=== PATIENT | female | born 1955 | race African-American/Black ===

== ENCOUNTER 2017-03-29 05:00 | Inpatient (IN) ==
--- NOTE | 2017-03-23 11:01 | EKG Report ---
Test Performed on : 03/23/2017 10:28:52 AM Test Reason : PAT Blood Pressure : / mmHG Vent. Rate : 086 BPM Atrial Rate : 086 BPM P-R Int : 154 ms QRS Dur : 098 ms QT Int : 416 ms P-R-T Axes : 061 -20 012 degrees QTc Int : 497 ms Sinus rhythm. with premature supraventricular complexes. Otherwise normal ECG When compared with ECG of 19-APR-2016 11:22, premature supraventricular complexes. are now present QT has lengthened Confirmed by cJ Ramos MD ([id number]) on 03/23/2017 3:23:35 PM
[2017-03-23 11:02] LABS: MANUAL DIFF NEEDED? NO; URINE MICRO REVIEW NEEDED? NO; URINE SOURCE CLEAN CATCH
[2017-03-23 11:05] LABS: BASO% 0.3 % (0.0-0.8); EOS% 1.3 % (0.0-10.0); HEMATOCRIT 35.5 % (37.0-47.0); HEMOGLOBIN 11.4 g/dL (12.0-16.0); LYMPH# 3.12 X1000 (1.2-3.4); LYMPH% 41.9 % (20.5-51.1); MCH 27.3 PG (27-31); MCHC 32.1 g/dL (33-37); MCV 84.9 FL (81-99); MONO# 0.62 X1000 (0.11-0.59); MONO% 8.3 % (1.7-9.3); MPV 9.7 FL (7.4-10.4); NEUT% 48.2 % (42.2-75.2); PLT 295 X1000 (130-400); RBC 4.18 XMIL (4.2-5.4)
[2017-03-23 11:07] LABS: BILIRUBIN URINE NEGATIVE (NEGATIVE); BLOOD URINE NEGATIVE (NEGATIVE); COLOR YELLOW; GLUCOSE URINE NEGATIVE (NEGATIVE); LEUKOCYTES URINE NEGATIVE (NEGATIVE); NITRITE URINE NEGATIVE (NEGATIVE); PROTEIN URINE NEGATIVE (NEGATIVE); SP GRAVITY URINE 1.007; TURBIDITY URINE CLEAR (CLEAR); UR EPITHELIAL CELLS <10 /HPF (<10); URINE BACTERIA NEGATIVE /HPF; URINE RBC <10 /HPF (<10); URINE WBC <10 /HPF (<10); UROBILINOGEN URINE NORMAL (NORMAL)
[2017-03-23 11:14] LABS: INR 0.99; PROTIME 10.4 Seconds (9.2-11.7)
[2017-03-23 11:33] LABS: AGAP 7; BUN 14 mg/dL (8-22); CALCIUM 8.7 mg/dL (8.8-10.2); CHLORIDE 100 mmol/L (98-107); COSMO 283; POTASSIUM 3.5 mmol/L (3.5-5.1); SODIUM 142 mmol/L (136-145); TCO2 35 mmol/L (25-35)
[2017-03-29] MEDS ORDERED: COLACE ONE (08:34)
[2017-03-29] MEDS ORDERED: LYRICA ONE (08:34)
[2017-03-29] MEDS ORDERED: PEPCID ONE (08:34)
[2017-03-29] MEDS ORDERED: REGLAN ONE (08:34)
[2017-03-29] MEDS ORDERED: LR 1,000 ML ONE (08:35)
[2017-03-29] MEDS ORDERED: CELEBREX ONE (08:35)
[2017-03-29] MEDS ORDERED: KEFZOL 2 GM/D5W 2 GM/50 ML IVPB ONE (08:35)
[2017-03-29] MEDS ORDERED: VALIUM ONE (09:07)
[2017-03-29] MEDS ORDERED: DURAMORPH ONE (09:31)
[2017-03-29] MEDS ORDERED: MARCAINE 0.25% PF ONE (09:32)
[2017-03-29] MEDS ORDERED: TORADOL ONE (09:32)
[2017-03-29] MEDS ORDERED: VANCOMYCIN ONE (09:32)
[2017-03-29] MEDS ORDERED: CYKLOKAPRON 1,000 MG/NS 1,000 MG/100 ML IVPB ONE ×2 (09:32→09:33)
[2017-03-29] MEDS ORDERED: NEOSPORIN G.U. IRRIGANT ONE (09:32)
[2017-03-29] MEDS ORDERED: EXPAREL 1.3% ONE (09:32)
[2017-03-29] MEDS ORDERED: SODIUM CHLORIDE 0.9% ONE (09:32)
[2017-03-29] MEDS ORDERED: VERSED ONE (09:44)
[2017-03-29] MEDS ORDERED: FENTANYL ONE (09:52)
[2017-03-29] MEDS ORDERED: DIPRIVAN 1% ONE (09:52)
[2017-03-29] MEDS ORDERED: OFIRMEV 1000 MG/ISOTONIC SOLN 1,000 MG/100 ML BOTTLE ONE (10:05)
[2017-03-29] MEDS ORDERED: ZOFRAN ONE (10:05)
[2017-03-29] MEDS ORDERED: NEO-SYNEPHRINE ONE (10:05)
[2017-03-29] MEDS ORDERED: SODIUM CHLORIDE 0.9% 10 ML ONE (10:05)
[2017-03-29] MEDS ORDERED: DECADRON ONE (10:05)
[2017-03-29 10:53] LABS: URINE MICRO REVIEW NEEDED? NO; URINE SOURCE CATH
[2017-03-29 11:15] LABS: BILIRUBIN URINE NEGATIVE (NEGATIVE); BLOOD URINE NEGATIVE (NEGATIVE); COLOR YELLOW; GLUCOSE URINE NEGATIVE (NEGATIVE); LEUKOCYTES URINE NEGATIVE (NEGATIVE); NITRITE URINE NEGATIVE (NEGATIVE); PH URINE 6.5; PROTEIN URINE TRACE mg/dL (NEGATIVE); TURBIDITY URINE CLEAR (CLEAR); UROBILINOGEN URINE NORMAL (NORMAL)
[2017-03-29 11:17] LABS: UR EPITHELIAL CELLS <10 /HPF (<10); URINE BACTERIA NEGATIVE /HPF; URINE RBC <10 /HPF (<10); URINE WBC <10 /HPF (<10)
[2017-03-29] MEDS ORDERED: EPHEDRINE ONE (11:25)
[2017-03-29] MEDS ORDERED: NS 1,000 ML ONE (12:16)
--- NOTE | 2017-03-29 12:21 | OPERATIVE NOTE ---
PROCEDURE DATE: 03/29/2017 PREOPERATIVE DIAGNOSIS: Degenerative joint disease, right knee. POSTOPERATIVE DIAGNOSIS: Degenerative joint disease, right knee. PROCEDURE: Right total knee replacement. SURGEON: Yasir Bruce MD. POSTING CLERK: ABBY Vann. ANESTHESIA: Spinal. COMPLICATION: Partial patellar tendon avulsion. PROCEDURE IN DETAIL: This 61-year-old female presents for right knee replacement. Risks, benefits, and no guarantees were discussed, and she is willing to proceed. She was taken the operating room and satisfactory anesthesia obtained. The right leg was prepped and draped in usual sterile fashion. A time-out was taken to confirm operative site, procedure, and patient. The leg was wrapped with an Esmarch, and tourniquet inflated to 350 mmHg. A midline incision was made over the front of the knee followed by a quad tendon sparing arthrotomy. The patella was everted and resurfaced with free-hand technique. A valgus knee was noted and all gentle lateral release of the IT band and lateral thickening of the retinaculum was undertaken. With the knee flexed, an intramedullary hole was made in the distal femur, and the distal femoral cutting block secured in 5 degrees of valgus. Additional 1 mm was taken off the distal femur due to a mild flexion contracture, and a distal femur sized to a size 5 femoral component. Due to valgus deformity and the need to correct this, posterior stabilized design was utilized. The 4 in 1 block was secured in the anterior, posterior, and chamfer cuts sequentially made, followed by the box guide for the posterior stabilized design. Any remaining osteophytes were debrided about the femur. A partial avulsion of the patellar tendon was noted during retraction the patella to expose the distal femur. No complete avulsion was noted. This was repaired at the end of the case using Juggernaut anchors with #2 suture. After preparation of the femur, the knee was flexed. A PCL retractor placed behind the tibia, and the tibial cutting block secured with an extramedullary alignment. Tibial resection was made and the flexion and extension gaps equal. The tibia was sized to a size 5 tibial base. A trial reduction was performed with a size 5 tibial base, a 5 mm posterior stabilized rotating poly, a 5 regular posterior stabilized right femoral component, and a 35 medialized patella. The trial components had good range of motion and stability. These were removed, and the bony surfaces thoroughly irrigated with pulsatile lavage. Cement with a gram of vancomycin was then utilized to cement a size 5 rotating platform tibial base plate, a size 5 right posterior stabilized femoral component, and a 35 medialized dome patella. Excess cement was removed with a Stapleton elevator as necessary. While the cement hardened, the joint capsule was injected with Exparel for pain management, and Hemovac drain placed. The patellar tendon was repaired with without Juggernaut anchors in the footprint and repaired in a [id number] fashion with secure fixation of patellar tendon throughout a full range of motion and flexion. The knee was copiously irrigated with irrigant and closed in layers with #1 Vicryl in the arthrotomy, 2-0 Vicryl in the subcutaneous, and skin everardo on the skin edges. Sterile dressings completed the closure, and the patient was recovered from anesthesia and transferred to recovery room in stable condition. No intraoperative complications were noted. Instrument count and sponge count was correct at the time of closure. cc: Anup Bruce MD
[2017-03-29] MEDS ORDERED: NS 1,000 ML IV SCH (13:30)
[2017-03-29] MEDS ORDERED: MILK OF MAGNESIA PO PRN (13:30)
[2017-03-29] MEDS ORDERED: ZOFRAN IV PRN (13:30)
[2017-03-29] MEDS ORDERED: MORPHINE IV PRN (13:30)
[2017-03-29] MEDS ORDERED: TYLENOL PO SCH (13:30)
--- NOTE | 2017-03-29 14:39 | Diag Imaging Result Doc PS360 ---
EXAM: KNEE 1-2 VIEWS-RIGHT HISTORY: s/p right total knee arthroplasty TECHNIQUE: Portable two views COMPARISON: None. FINDINGS: There has been recent orthopedic replacement of the knee. There are anterior skin everardo. A drain is present superiorly. No fracture. No dislocation. IMPRESSION: Recently replaced right knee with good alignment of the femoral and tibial components. Electronically signed by Howard Parks 03/29/2017 2:36 PM
[2017-03-29] MEDS: BUMEX PO SCH (14:54)
[2017-03-29] MEDS: ULTRAM PO SCH ×2 (14:54→21:46)
[2017-03-29] MEDS: SYNTHROID PO SCH (14:55)
[2017-03-29] MEDS: TYLENOL PO SCH ×2 (15:49→22:57)
[2017-03-29] MEDS: OXY IR PO PRN ×3 (15:50→22:30)
[2017-03-29] MEDS: FLEXERIL PO SCH (16:35)
[2017-03-29] MEDS: KLOR-CON POWDER PACKET PO SCH (16:37)
--- NOTE | 2017-03-29 17:48 | PROGRESS NOTE ---
DATE: 03/29/2017 Ms. Vick is seen status post total knee replacement. At the present time she is afebrile. Her bandage is clean and dry. She has already been up mobilizing. She is motor and sensory intact. She is stable at the present time. cc: Anup Bruce MD
[2017-03-29] MEDS: KEFZOL 1 GM/D5W 1 GM/50 ML IVPB IV SCH (18:36)
[2017-03-29] MEDS ORDERED: NEURONTIN PO SCH (21:00)
[2017-03-29] MEDS ORDERED: XANAX XR PO SCH (21:00)
[2017-03-29] MEDS ORDERED: DESYREL PO SCH (21:00)
[2017-03-29] MEDS: COLACE PO SCH (21:46)
[2017-03-29] MEDS: CELEBREX PO SCH (21:47)
[2017-03-29] MEDS: PERIDEX MT SCH (21:48)
[2017-03-30] MEDS: KEFZOL 1 GM/D5W 1 GM/50 ML IVPB IV SCH (03:58)
[2017-03-30] MEDS: ULTRAM PO SCH ×2 (03:59→07:57)
[2017-03-30] MEDS: OXY IR PO PRN ×2 (05:28→09:40)
[2017-03-30] MEDS: TYLENOL PO SCH ×2 (05:28→07:55)
[2017-03-30] MEDS ORDERED: XARELTO PO SCH (06:00)
[2017-03-30 06:08] LABS: AGAP 11; BUN 11 mg/dL (8-22); CALCIUM 8.7 mg/dL (8.8-10.2); CHLORIDE 102 mmol/L (98-107); COSMO 283; HEMATOCRIT 30.9 % (37.0-47.0); HEMOGLOBIN 9.7 g/dL (12.0-16.0); POTASSIUM 3.9 mmol/L (3.5-5.1); SODIUM 142 mmol/L (136-145); TCO2 29 mmol/L (25-35)
[2017-03-30 07:30] VITALS: BP 128/89
[2017-03-30] MEDS: FLEXERIL PO SCH (07:55)
[2017-03-30] MEDS: KLOR-CON POWDER PACKET PO SCH (07:55)
[2017-03-30] MEDS: BUMEX PO SCH (07:56)
[2017-03-30] MEDS: SYNTHROID PO SCH (07:57)
[2017-03-30] MEDS: COLACE PO SCH (07:58)
[2017-03-30] MEDS: CELEBREX PO SCH (07:58)
[2017-03-30] MEDS: PERIDEX MT SCH (07:59)
[2017-03-30] MEDS ORDERED: PEPCID PO SCH (09:00)
[2017-03-30] MEDS ORDERED: ZAROXOLYN PO SCH (09:00)
--- NOTE | 2017-03-31 07:20 | DISCHARGE SUMMARY ---
ADMISSION DATE: 03/29/2017 DISCHARGE DATE: 03/30/2017 ADMITTING DIAGNOSIS: Degenerative joint disease right knee. ADDITIONAL DIAGNOSES: 1. History of sleep apnea. 2. Ulcers. 3. Rheumatism. 4. Hypertension. DISCHARGE DIAGNOSES: 1. History of sleep apnea. 2. Ulcers. 3. Rheumatism. 4. Hypertension. ADMITTING HISTORY AND HOSPITAL COURSE: This is a 61-year-old female who was admitted to the hospital for knee replacement. She underwent knee replacement surgery without complication. On postop day 1 she is discharged home for outpatient followup. At the present time, she is afebrile with stable vital signs. Her incision is clean and dry. There is no evidence of infection or deep venous thrombosis. DISCHARGE MEDICATIONS: Includes Percocet 10 as needed for pain, Xarelto 10 mg a day for deep venous thrombosis prophylaxis. Continuation of her home medicines consisting of alprazolam 2 mg daily, bemitradine tablet 1 mg daily, levothyroxine 150 mcg daily, 2.5 daily, potassium supplementation, trazodone 50 mg as needed. She can be mobilized with home therapy full-weightbearing. There are no restrictions. We will see her back in 2 weeks time for staple removal. cc: Anup Bruce MD
== END 2017-03-30 10:42 | disposition home health service (06) ==
LOC: SURHOLD 05:00 → 4N 10:47
PROVIDERS: ADMIT Orthopaedic Surgery Adult Reconstructive Orthopaedic Surgery; ATTEND Orthopaedic Surgery Adult Reconstructive Orthopaedic Surgery

== ENCOUNTER 2019-03-09 08:47 | Inpatient (IN) ==
[2019-03-09] MEDS ORDERED: CARDIZEM ONE (09:11)
[2019-03-09] MEDS ORDERED: NS 500 ML IV ONE (09:15)
[2019-03-09] MEDS ORDERED: CARDIZEM IV ONE (09:15)
[2019-03-09 09:36] LABS: BASO# 0.03 X1000 (0.0-0.2); BASO% 0.3 % (0.0-0.8); EOS# 0.13 X1000 (0.0-0.7); EOS% 1.3 % (0.0-10.0); HEMATOCRIT 38.1 % (37.0-47.0); HEMOGLOBIN 11.9 g/dL (12.0-16.0); IMM GRAN# 0.02 X1000 (0.0-0.04); IMM GRAN% 0.2 % (0.0-0.5); LYMPH% 32.6 % (20.5-51.1); MCH 26.4 PG (27-31); MCHC 31.2 g/dL (33-37); MCV 84.7 FL (81-99); MONO# 0.84 X1000 (0.11-0.59); MONO% 8.3 % (1.7-9.3); MPV 9.7 FL (7.4-10.4); NEUT# 5.81 X1000 (1.4-6.5); NEUT% 57.3 % (42.2-75.2); PLT 345 X1000 (130-400); RDW 15.5 % (11.5-14.5); WBC 10.13 X1000 (4.8-10.8)
[2019-03-09 09:49] LABS: AGAP 12; ALBUMIN 4.1 g/dL (3.5-5.0); ALKALINE PHOSPHATASE 122 U/L (32-104); BUN 10 mg/dL (8-22); CALCIUM 9.1 mg/dL (8.8-10.2); CHLORIDE 95 mmol/L (98-107); COSMO 274; CREATININE 0.7 mg/dL (0.5-0.9); ESTIMATED GFR > 60; GLUCOSE 91 mg/dL (70-104); GOT 16 U/L (10-30); GPT 10 U/L (10-36); POTASSIUM 3.4 mmol/L (3.5-5.1); SODIUM 138 mmol/L (136-145); TCO2 31 mmol/L (25-35); TOTAL PROTEIN 7.3 g/dL (6.3-8.3)
[2019-03-09 09:52] LABS: CK PROFILE 178 U/L (24-173)
--- NOTE | 2019-03-09 09:58 | Diag Imaging Result Doc PS360 ---
CHEST-2 VIEWS - 03/09/2019 INDICATION: sob COMPARISON: None FINDINGS: There is a surgical resection suture line in the right middle lobe. There is mild cardiomegaly. Pulmonary vascularity is normal. There is some patchy linear atelectasis in the lingula. No substantial infiltrates or edema. No pneumothorax or pleural effusion. IMPRESSION: Mild cardiomegaly. Electronically signed by Juan Brooks 03/09/2019 9:55 AM
[2019-03-09 10:03] LABS: INR 0.95; PROTIME 13.2 Seconds (11.0-16.0)
[2019-03-09 10:04] LABS: PTT 29.3 Seconds (22.3-41.8)
[2019-03-09 10:28] LABS: CK INDEX 1.8 (0.0-2.5); CK-MB 3.23 ng/mL (0.0-5.0)
--- NOTE | 2019-03-09 10:28 | EKG Report ---
Test Performed on : 03/09/2019 09:03:16 AM Test Reason : sob Blood Pressure : / mmHG Vent. Rate : 121 BPM Atrial Rate : 093 BPM P-R Int : 000 ms QRS Dur : 120 ms QT Int : 324 ms P-R-T Axes : 000 -38 035 degrees QTc Int : 460 ms Atrial fibrillation. with rapid ventricular response. Left axis deviation Nonspecific intraventricular conduction delay Nonspecific T wave abnormality Abnormal ECG When compared with ECG of 23-MAR-2017 10:28, Atrial fibrillation. has replaced Sinus rhythm. ST elevation now present in Inferior leads T wave inversion more evident in Inferior leads Nonspecific T wave abnormality now evident in Lateral leads Unconfirmed Result
[2019-03-09] MEDS ORDERED: POTASSIUM CHLORIDE 20% LIQUID PO ONE (10:30)
--- NOTE | 2019-03-09 10:31 | PROVIDER DOCUMENTATION ---
This chart was entered by Liyah Hughes Scribe, acting as scribe for Jean Claude Peters MD. HPI-Respiratory General - General Chief Complaint: Shortness of Breath Stated Complaint: [id number] SWELLING Time Seen by Provider: 03/09/19 09:04 Source: patient Allergies/Adverse Reactions: Patient Allergies Allergy/AdvReac Type Severity Reaction Status Date / Time Iodinated Contrast Media Allergy Severe HIVES Verified 03/09/19 08:56 Home Medications: Home Medication List Medication Instructions Recorded Confirmed Last Taken Type Levothyroxine [Synthroid] 112 microgm PO DAILY 04/19/16 03/09/19 03/29/17 06:00 History 125 Cyclobenzaprine [Flexeril] 10 mg PO DAILY 03/23/17 03/09/19 03/28/17 23:00 History 10 Gabapentin 300 mg PO QHS 03/23/17 03/09/19 03/28/17 23:00 History 300 Amitriptyline HCl 1 tab PO HS 03/09/19 03/09/19 Unknown History Cholecalciferol (Vitamin D3) 1 tab PO DAILY 03/09/19 03/09/19 Unknown History [Vitamin D3] Diltiazem HCl [Cardizem Cd] 1 tab PO DAILY 03/09/19 03/09/19 Unknown History Hydrochlorothiazide 1 tab PO DAILY 03/09/19 03/09/19 Unknown History - History of Present Illness-Resp Nature of Presenting Problem: 63 yobf presents to the ed with c/o sob with exertion, palpitations, chest tighness and n/v at night. pt sts symptoms have been present intermittently "for months" pt on exam is happ and laughing with staff and is nontoxic in appearance Quality of Pain: reports: tightness (chest) Severity in ED: reports: mild Onset/Duration: reports: other ("for months") Timing: reports: still present, intermittent Context: reports: recent URI Cough Quality/Degree: reports: mild, productive cough (white) Current Respiratory Medication Therapy: Initiated see nurses note Modifying Factors: worse with: exertion, coughing Associated Symptoms: reports: chest pain/soreness (tightmness), cough, heart racing, shortness of breath, other (n/v). denies: fever/chills, wheezing Similar Symptoms Previously?: No Recently seen or treated by another doctor?: No Review of Systems - Adult - REVIEW OF SYSTEMS - ADULT Constitutional: denies: chills, fever Eyes: reports: no symptoms reported Ears, Nose, Mouth & Throat: reports: no symptoms reported Cardiovascular: reports: see HPI, chest pain, palpitations. denies: syncope Respiratory: reports: see HPI, cough, dyspnea on exertion, shortness of breath. denies: wheezing Gastrointestinal: reports: see HPI, nausea, vomiting. denies: diarrhea Genitourinary: reports: no symptoms reported Musculoskeletal: denies: back pain, neck pain Integumentary: reports: no symptoms reported Neurological: denies: dizziness/vertigo, headache/migraines Psychiatric: reports: no symptoms reported Endocrine: reports: no symptoms reported Hematologic/Lymphatic: reports: no symptoms reported Allergic/Immunologic: reports: no symptoms reported All Other Systems: Reviewed and Negative Past History - Adult - PAST MEDICAL HISTORY-ADULT Review of Records: reports: Old Records Reviewed, Nursing Assessment Review, Medications Reviewed, Social history reviewed & non-contributory. Major Childhood Illnesses: reports: denies history Cardiovascular: reports: HTN, hyperlipidemia Respiratory: reports: sleep apnea Gastrointestinal: reports: GERD Obstetrical/Gynecological: reports: denies history Genitourinary: reports: denies history Musculoskeletal: reports: arthritis Neurological: reports: denies history Psychiatric: reports: anxiety Endocrine/Immune: reports: denies history Other Conditions: reports: denies history - PRIOR SURGERIES/PROCEDURES Surgical/Procedure History: reports: hysterectomy, orthopedic (extremity), back/neck - IMMUNIZATION STATUS Childhood Immunizations: See Nurse Assessment Flu Vaccine: See Nurse Assessment - FAMILY HISTORY Family History: reviewed, not pertinent - SOCIAL HISTORY Smoking: cigarettes, less than 1 pack/day Provider spent 3-5 mins advising pt. on dangers of tobacco.: Discussed manners to quit use, and f/u contacts for add'l counseling. Substance Use: denies Alcohol Use Frequency: never Living Situation: family Physical Exam-General - PHYSICAL EXAM-ADULT Initial Vital Signs Reviewed: Yes - CONSTITUTIONAL General Appearance: appears well, alert, no apparent distress, obese - EYES Eyes: PERRL/EOMI, pink conjunctivae - HEAD, EARS, NOSE, MOUTH & THROAT HENMT: moist mucous membranes, normal ENT inspection - NECK Neck: non-tender, full range of motion, supple - RESPIRATORY Respiratory: chest non-tender, lungs clear, normal breath sounds, no respiratory distress, no accessory muscle use. negative: wheezing - CARDIOVASCULAR Cardiovascular: normal peripheral pulses, irregularly irregular (afib) - CHEST (BREASTS) Chest/Breast: no tenderness, other (c/o tightness) - GASTROINTESTINAL (ABDOMEN) Abdominal Exam: normal bowel sounds, non tender, soft - GENITOURINARY Female Genitalia/Pelvic Exam: deferred Rectal Exam: deferred Hemoccult Exam: deferred - LYMPHATIC Lymphatic: no adenopathy - MUSCULOSKELETAL Back Exam: normal inspection, no CVA tenderness, no vertebral tenderness Extremity: normal range of motion, non-tender, normal capillary refill, pelvis stable - SKIN Integumentary: normal color, normal turgor, warm/dry - NEUROLOGIC Neurologic: grossly normal, no motor/sensory deficits - PSYCHIATRIC Psych/Mental Status: normal mood/affect, normal thought content, normal thought process, oriented x 3 Progress - PLAN OF CARE/RESULTS Progress/Plan/Lab Results: Vital Signs - 8 hr 03/09/19 08:51 03/09/19 09:56 Temperature 98.1 F Pulse Rate 143 H 110 H Respiratory Rate 20 20 Blood Pressure 125/66 114/78 O2 Sat by Pulse Oximetry 100 97 Laboratory Results - last 24 hr 03/09/19 03/09/19 03/09/19 09:15 09:15 09:15 WBC 10.13 RBC 4.50 Hgb 11.9 L Hct 38.1 MCV 84.7 MCH 26.4 L MCHC 31.2 L RDW Std Deviation 15.5 H Plt Count 345 MPV 9.7 Immature Gran % (Auto) 0.2 Neut % (Auto) 57.3 Lymph % (Auto) 32.6 [place] % (Auto) 8.3 Eos % (Auto) 1.3 Baso % (Auto) 0.3 Immature Gran # (Auto) 0.02 Neut # (Auto) 5.81 Lymph # (Auto) 3.30 [place] # (Auto) 0.84 H Eos # (Auto) 0.13 Baso # (Auto) 0.03 PT INR PTT (Actin FS) Sodium 138 Potassium 3.4 L Chloride 95 L Carbon Dioxide 31 Anion Gap 12 BUN 10 Creatinine 0.7 Estimated GFR/1.73 m2 > 60 BUN/Creatinine Ratio 14 Glucose 91 Calculated Osmolality 274 Calcium 9.1 Total Bilirubin 0.30 AST 16 ALT 10 Alkaline Phosphatase 122 H Creatine Kinase 178 H Creatine Kinase Index 1.8 CK-MB (CK-2) 3.23 Troponin T Cbm-G-Vpempjdbrie Pept 868 H Total Protein 7.3 Albumin 4.1 Globulin 3.0 Albumin/Globulin Ratio 1.0 Free T4 03/09/19 03/09/19 03/09/19 09:15 09:15 09:15 WBC RBC Hgb Hct MCV MCH MCHC RDW Std Deviation Plt Count MPV Immature Gran % (Auto) Neut % (Auto) Lymph % (Auto) [place] % (Auto) Eos % (Auto) Baso % (Auto) Immature Gran # (Auto) Neut # (Auto) Lymph # (Auto) [place] # (Auto) Eos # (Auto) Baso # (Auto) PT 13.2 INR 0.95 PTT (Actin FS) 29.3 Sodium Potassium Chloride Carbon Dioxide Anion Gap BUN Creatinine Estimated GFR/1.73 m2 BUN/Creatinine Ratio Glucose Calculated Osmolality Calcium Total Bilirubin AST ALT Alkaline Phosphatase Creatine Kinase Creatine Kinase Index CK-MB (CK-2) Troponin T < 0.010 Tty-F-Bgdwljeeruj Pept Total Protein Albumin Globulin Albumin/Globulin Ratio Free T4 1.47 Orders Category Date Time Status Cardiac Monitoring DIRECTED Care 03/09/19 08:57 Active Saline Loc NOW Care 03/09/19 08:57 Active CHEST-2 VIEWS [RAD] Stat Exams 03/09/19 08:57 Completed CBC WITH ELECTRONIC DIFF [HEME] Stat Lab 03/09/19 09:15 Completed CK PROFILE [SP CHEM] Stat Lab 03/09/19 09:15 Completed COMPREHENSIVE METABOLIC PANEL [CHEM] Stat Lab 03/09/19 09:15 Completed FREE T4 Stat Lab 03/09/19 09:15 Completed PRO B-NATRIURETIC PEPTIDE Stat Lab 03/09/19 09:15 Completed PROTIME WITH INR [COAG] Stat Lab 03/09/19 09:15 Completed PTT [COAG] Stat Lab 03/09/19 09:15 Completed TROPONIN T Stat Lab 03/09/19 09:15 Completed 0.9% Sodium Chloride Inj [Ns] 500 ml Med 03/09/19 09:15 Discontinued IV 999 mls/hr Diltiazem [Cardizem] Med 03/09/19 09:15 Discontinued 20 mg IV NOW ONE Diltiazem [Cardizem] Med 03/09/19 09:11 Discontinued 25 mg .ROUTE .STK-MED ONE CP/SOB/Palp >45 yrs of Age Stat Oth 03/09/19 08:57 Ordered EKG [EKG] Stat Ther 03/09/19 08:57 Draft Result Diagrams: 03/09/19 09:15 03/09/19 09:15 - REASSESSMENT Reassessment #1 Time Reassessed: 10:00 (pt was given Cardizem 20mg and now has flutter) Status: unchanged Reassessment Comment: dr peters at bedside Reassessment #2 Time Reassessed: 10:18 (dr peters at bedside expalining POC to pt) Status: unchanged - EKG 1 Time of EKG reading by physician:: 09:03 EKG Read and Signed by:: Jean Claude Peters EKG Interpretation (*Must complete 3 of following elements*): Abnormal Rate: 121 Rhythm: afib with rvr [place]: left (deviation) QRS: other (nonspecific intraventricular conduction delay) NE Interval: normal ST Wave: normal Comments: nonspecific T wave abnormality 2 Time of EKG reading by physician:: 09:58 EKG Read and Signed by:: Jean Claude Peters EKG Interpretation (*Must complete 3 of following elements*): Abnormal Rate: 108 Rhythm: atrial flutter with variable AV block [place]: left (deviation) QRS: other (nonspecific intraventricular block) NE Interval: normal ST Wave: normal Prior EKG Comparison: changes noted (afib with rvr to atrial flutter with variable AV block) Comments: t wave abnormlaity, consider inferior ischemia - XRAY 1 XRAY: Bilateral XRAY Study: Chest Impression: See EMR Report (CHEST-2 VIEWS - 03/09/2019 INDICATION: sob COMPARISON: None FINDINGS: There is a surgical resection suture line in the right middle lobe. There is mild cardiomegaly. Pulmonary vascularity is normal. There is some patchy linear atelectasis in the lingula. No substantial infiltrates or edema. No pneumothorax or pleural effusion. IMPRESSION: Mild cardiomegaly. Electronically signed by Juan Brooks 03/09/2019 9:55 AM 03/09/19 0955 Interpreting Physician: Juan Brooks MD Dictated Date/Time: 03/09/19 0927 cc: Jean Claude Peters MD; London Keen MD) - CONSULTS/PCP/HOSPITALIST Notification #1 *Consult/PCP/Hospitalist*: hospitalist dr rose Time Discussed: 10:21 Reason/Comments: new onset afib with rvr Consult Disposition: Admit Departure - Departure Date of Disposition Decision: 03/09/19 Time of Disposition Decision: 10:21 DIAGNOSIS: New onset a-fib, Tobacco use disorder, Atrial fibrillation with RVR, Hypokalemia Disposition: ADMITTED INPATIENT 09 Certified Medical Emergency: Emergent Condition: Stable Referrals and Follow-Ups: London Keen MD [Primary Care Provider] - - Critical Care Note This patient required my direct & personal management of CC.: Yes Total Time (mins): 34 (new onset afib w/RVR) Critical Care Statement: This patient required my direct personal management to treat or rule out processes, the absence of which, could potentiallly result in sudden, clinically significant life or limb threatening deterioration. Attestation - Physician/ KESHA Attestation Patient care was provided by Advanced Practice Provider:: No The physician spent face to face time with patient:: Yes Advanced Practice Provider documentation review:: Supervising physician onsite and consulted in the evaluation and care of this patient. The physician did have a face to face encounter with the patient. This chart was documented by the indicated scribe, (Liyah Hughes Scribe) and accurately reflects the services I performed and decisions made by me, Jean Claude Salinas MD, as attested by the provider's signature.
--- NOTE | 2019-03-09 10:41 | EKG Report ---
Test Performed on : 03/09/2019 09:58:08 AM Test Reason : ER Blood Pressure : / mmHG Vent. Rate : 108 BPM Atrial Rate : 278 BPM P-R Int : 000 ms QRS Dur : 130 ms QT Int : 366 ms P-R-T Axes : 036 -37 -24 degrees QTc Int : 490 ms Atrial flutter. with variable AV block. Left axis deviation Nonspecific intraventricular block T wave abnormality, consider inferior ischemia Abnormal ECG When compared with ECG of 09-MAR-2019 09:03, (Unconfirmed) Atrial flutter. has replaced Atrial fibrillation. T wave inversion more evident in Inferior leads Unconfirmed Result
[2019-03-09] MEDS ORDERED: ZOFRAN IV PRN (12:58)
[2019-03-09] MEDS ORDERED: LANOXIN IV ONE ×2 (13:03→16:00)
--- NOTE | 2019-03-09 14:16 | HISTORY AND PHYSICAL ---
PRIMARY CARE PHYSICIAN: Dr. London Keen. CHIEF COMPLAINT: Weakness, lightheadedness and shortness of breath. HISTORY OF PRESENT ILLNESS: Ms Vick is a 63-year-old female who states that she started having weakness, some lightheadedness and some shortness of breath. This has being going on for the past couple months but has been worse over the past week and a half. The patient has a past medical history of hypothyroidism, hypertension, diverticulosis, obstructive sleep apnea, osteoarthritis and GERD. The patient states that she has been having notable weakness, lightheadedness and shortness of breath. She has also been having some left leg edema. The patient states that she has also been having some chest tightness. She denies any chest pain. She denies any nausea, vomiting, diarrhea, fever, chills. States she has been having some palpitations and this is been going on for some time now. Patient states she has not had any fever or chills. She has not had any dysuria, hematuria. The patient states she has chronic constipation, has not had any diarrhea and has not had any blood in her stools. 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 PAST SURGICAL HISTORY: Bilateral knee replacements, 2 back surgeries and vein stripping. FAMILY HISTORY: Mother had heart problems and she is . SOCIAL HISTORY: Patient states she lives in [place]. Her has been for 10 years. She does live alone. The patient states that she is disabled. She is unable to work anymore due to her back problems. She denies any alcohol or illicit drug abuse. Patient states that she has recently started back smoking where she was quit for greater than 15 years. She smokes a half pack a day. ALLERGIES: IV contrast dye. MEDICATIONS: 1. Levothyroxine 112 mcg p.o. daily. 2. Gabapentin 300 mg p.o. at bedtime. 3. Flexeril 10 mg p.o. daily. 4. Amitriptyline 100 mg p.o. at bedtime. 5. Vitamin D3 5000 units p.o. daily. 6. Diltiazem 240 mg p.o. daily. 7. Hydrochlorothiazide 25 mg p.o. daily. LABS AND DIAGNOSTICS: Sodium 138, potassium 3.4, chloride 95, BUN is 10, creatinine is 0.7, estimated GFR is greater than 60, glucose is 91, calcium is 9.1, magnesium is 1.9, total bilirubin is 0.3, AST is 16, ALT is 10, alkaline phosphatase is 122, creatine kinase is 178, troponin is less than 0.01, proBNP is 868. Free T4 is 1.47. Chest x-ray shows mild cardiomegaly. EKG shows atrial fibrillation with rapid RVR and left axis deviation. The rate is 121 beats per minute. REVIEW OF SYSTEMS: A 10 point review of systems has been obtained. All are negative except what is stated above in HPI. PHYSICAL EXAMINATION: VITAL SIGNS: Temperature 98.1 degrees, pulse rate 110, respiratory rate 20, blood pressure is 114/78, O2 saturations 97% on nasal cannula 2 L. Weight is 192 pounds, height is 5 feet 2. GENERAL: This is a 63-year-old female. She is in no acute distress. She is well nourished and well developed. She is lying in the ER stretcher. HEENT: Atraumatic, normocephalic. Pupils equal, round, reactive to light. Sclerae is anicteric. Mucous membranes are moist. NECK: Supple. No lymphadenopathy. Trachea is midline. No JVD, thyromegaly or bruits. CARDIOVASCULAR: Irregular rate and rhythm. No murmurs, gallops, or rubs appreciated. Heart rate 120, atrial fibrillation noted on the monitor. RESPIRATORY: Lung sounds are clear with equal chest excursion. Respirations are nonlabored with no accessory muscle usage. ABDOMEN: Soft, nontender, nondistended. Bowel sounds present x4. NEURO: Cranial nerves 2-12 are intact. The patient is awake, alert, oriented, able to follow all commands appropriately. MUSCULOSKELETAL: Full distal strength noted. No abnormalities. No deformities. EXTREMITIES: No clubbing, no cyanosis. Mild edema noted to the bilateral lower extremities. The left is greater than the right. DP and PT pulses are present and palpable. There is several varicosities noted to the bilateral lower extremities. SKIN: Warm, dry, and intact. No rashes or bruises. No diaphoresis. ASSESSMENT AND PLAN: 1. Atrial fibrillation with rapid ventricular response. The patient was given a dose of Cardizem in the emergency room. We are going to admit this patient to the ICU unit. We are going to place her on security monitor. She was given 1 dose of Cardizem. We are going to give her a dose of digoxin 250 mcg IV now x 1. We are going to start her on a Cardizem drip per protocol. Patient's blood pressure was mildly low with a systolic of 104 while I was in the room. We will watch her blood pressure and only start the Cardizem drip if her blood pressure is greater than 110. We are going to repeat all her labs in the morning. We are also going to do a EKG. We are going to trend her CK and troponin levels. I have placed her on Lovenox for anticoagulation. 2. Hypertension. The patient is actually having some hypotension at this time. We are going to watch her blood pressure closely in the ICU and will not restart any of her home medications for high blood pressure because her blood pressure is a little low. She was given a 500 mL bolus of fluids in the emergency room. 3. Hypokalemia. She was given a dose of potassium 40 mEq in the emergency room. We are going to recheck her labs in the morning. 4. Graves disease vs hypothyroidism. I do not have a current TSH on this patient. The patient is on Synthroid at home and when I look back at her old medical records it says that she was hypothyroidism but her last TSH that I could find in the record was done in 2016 showed a TSH of 0.03. I have ordered a stat TSH level to see what her level is now and going to hold off on her Synthroid at this time until this level has been verified. Patient states she has Grave's Disease. 5. Peripheral neuropathy. Patient is on Neurontin at home. Patient states that at times she is unable to feel her feet. I have restarted her home Neurontin. 6. Vitamin D deficiency. The patient takes vitamin D at home. I have restarted this home dose. 7. Deep venous thrombosis prophylaxis. I will place this patient on Lovenox 1 mg/kg subcu q.12 hours since she is in atrial fibrillation, RVR. This should cover her prophylaxis. 8. Gastrointestinal prophylaxis. I placed the patient on Prilosec 20 mg p.o. daily. We are going to admit this patient to the ICU unit, place her on security monitor. We will start Cardizem drip on her, but 1st we are going to give her a dose of digoxin to see if we can get the rate down. I restarted some of her home medications. We are going to repeat her labs in the morning and we are going to trend her CK and troponin levels, we are going repeat her EKG in the morning, we are going to do echocardiogram on her. I have ordered venous doppler studies on the lower extremities to r/o DVT patient does have edema noted. All other further treatment pending hospital course and lab data. Dictated by RALPH Osborne for Jovanni Starr MD cc: London Keen MD MTDD
[2019-03-09] MEDS: LOVENOX SUBQ SCH (15:57)
[2019-03-09] MEDS: CARDIZEM 125 MG/D5W 125 MG/125 ML IVPB IV SCH ×2 (17:17→22:09)
--- NOTE | 2019-03-09 18:25 | EKG Report ---
Test Performed on : 03/09/2019 5:49:34 PM Test Reason : A. Fib Blood Pressure : / mmHG Vent. Rate : 112 BPM Atrial Rate : 112 BPM P-R Int : 000 ms QRS Dur : 128 ms QT Int : 378 ms P-R-T Axes : 245 -34 003 degrees QTc Int : 515 ms Atrial flutter. with variable AV block. Left axis deviation Nonspecific intraventricular block T wave abnormality, consider inferior ischemia T wave abnormality, consider anterior ischemia Abnormal ECG When compared with ECG of 09-MAR-2019 09:58, (Unconfirmed) Inverted T waves have replaced nonspecific T wave abnormality in Anterior leads Confirmed by Aris Armstrong MD ([id number]) on 03/15/2019 3:16:15 PM
--- NOTE | 2019-03-09 18:40 | Extremity Venous Study ---
EXAM: Venous U/S Bilateral Legs INDICATION: R/O DVT TECHNIQUE: COMPARISON: 05/25/2016 FINDINGS: There are no discrete filling defects and there is normal Doppler flow, compressibility, and augmentation involving the deep venous system of the right and left lower extremities. The great saphenous veins also appear to be patent bilaterally. Surrounding soft tissues are grossly unremarkable. IMPRESSION: No evidence of DVT. Electronically signed by Anup Mcconnell 03/09/2019 6:37 PM
--- NOTE | 2019-03-09 18:41 | HISTORY AND PHYSICAL ---
ADDENDUM REPORT I saw the patient [id number] and fully agree with the assessment and plan of nurse practitioner Yara Knox. This is a 62-year-old female who has been admitted to the hospital with atrial fibrillation with RVR along with hypertension, hypokalemia, and hypothyroidism. She is going to be admitted to the intensive care unit and will receive IV diltiazem along with digoxin to control her heart rate and blood pressure at same time. Supportive care will be provided and further recommendations will be given as per hospital course. cc: Jovanni Starr MD
[2019-03-09] MEDS: NEURONTIN PO SCH (22:09)
[2019-03-09] MEDS: ELAVIL PO SCH (22:09)
[2019-03-10] MEDS: LOVENOX SUBQ SCH (03:20)
[2019-03-10] MEDS: PRILOSEC PO SCH (06:03)
[2019-03-10 06:39] LABS: BASO# 0.02 X1000 (0.0-0.2); BASO% 0.3 % (0.0-0.8); EOS# 0.16 X1000 (0.0-0.7); EOS% 2.1 % (0.0-10.0); HEMATOCRIT 37.6 % (37.0-47.0); HEMOGLOBIN 11.5 g/dL (12.0-16.0); IMM GRAN# 0.01 X1000 (0.0-0.04); IMM GRAN% 0.1 % (0.0-0.5); LYMPH# 2.76 X1000 (1.2-3.4); LYMPH% 35.7 % (20.5-51.1); MCH 26.1 PG (27-31); MCHC 30.6 g/dL (33-37); MCV 85.5 FL (81-99); MONO% 7.8 % (1.7-9.3); MPV 9.7 FL (7.4-10.4); NEUT# 4.19 X1000 (1.4-6.5); PLT 334 X1000 (130-400); RDW 15.4 % (11.5-14.5); WBC 7.74 X1000 (4.8-10.8)
[2019-03-10] MEDS ORDERED: SYNTHROID PO SCH (07:00)
[2019-03-10 07:01] LABS: CHOLESTEROL 228 mg/dL (0-200); HDL 56 mg/dL (45-65); LDL 147 mg/dL; TRIGLYCERIDES 126 mg/dL (35-135); VLDL 25 mg/dL
--- NOTE | 2019-03-10 08:31 | EKG Report ---
Test Performed on : 03/10/2019 07:15:35 AM Test Reason : Afib RVR Blood Pressure : / mmHG Vent. Rate : 112 BPM Atrial Rate : 278 BPM P-R Int : 000 ms QRS Dur : 128 ms QT Int : 366 ms P-R-T Axes : 079 -40 -06 degrees QTc Int : 499 ms Atrial flutter. with variable AV block. Left axis deviation Nonspecific intraventricular block T wave abnormality, consider inferior ischemia Abnormal ECG When compared with ECG of 09-MAR-2019 17:49, (Unconfirmed) Nonspecific T wave abnormality, improved in Lateral leads Confirmed by Aris Armstrong MD ([id number]) on 03/15/2019 3:15:55 PM
[2019-03-10] MEDS: TYLENOL PO PRN (08:40)
[2019-03-10] MEDS: VITAMIN D PO SCH (08:40)
[2019-03-10] MEDS ORDERED: LANOXIN PO SCH (12:45)
[2019-03-10] MEDS ORDERED: LOVENOX SUBQ SCH (13:00)
--- NOTE | 2019-03-10 13:22 | PROGRESS NOTE ---
DATE: 03/10/2019 SUBJECTIVE: The patient feels much better this morning. OBJECTIVE: Vital Signs: 100% on 2 liters of oxygen via nasal cannula. General: Patient is alert and oriented x3. She does not appear to be in distress. Cardiovascular system: First and second heart sounds are audible without murmurs, gallops. Respiratory system: Bilateral lung air entry is good without any rales or rhonchi. Gastrointestinal system: Abdomen is soft and nondistended. Musculoskeletal system: No abnormalities. DIAGNOSTIC DATA: CBC showed hemoglobin low. The rest of the CBC is nondiagnostic. Her H and H remained stable. Serial echocardiograms are negative and lipid panel obtained this morning showed cholesterol levels of 228, triglyceride is 156, LDL 26 and HDL 56. ECG obtained earlier this morning showed atrial fib with variable AV block with ventricular rate of 112 beats per minute. Venous ultrasound of legs showed no evidence of abnormality. IMPRESSION: 1. Atrial flutter with rapid ventricular response. 2. Hypertension that is stable. 3. Hypothyroidism. 4. Dyslipidemia. PLAN: Patient will continue to stay in intensive care unit with IV diltiazem running. I am going to continue with digoxin as 0.125 mg orally once daily. I am going to obtain an echocardiogram and also get Cardiology consultation for further evaluation. The patient has been getting Lovenox 1 mg/kg subcutaneously every 12 hours. That will be discontinued and I am going to switch her to enoxaparin 40 mg subcutaneously every 4 hours for VTE prophylaxis. I am also going to put her on aspirin 81 mg orally once daily and provide her supportive care. Furthermore, her cholesterol levels have been somewhat elevated, and therefore I am going to start her on atorvastatin 20 mg orally once daily at bedtime. Further recommendations will be given as per hospital course. cc: Jovanni Starr MD
--- NOTE | 2019-03-10 15:07 | ECHO REPORT ---
ORDER DATE: 03/09/2019 INDICATION: Atrial fibrillation. FINDINGS: Patient appears to be in variable conduction atrial flutter. 1. The right atrium appears normal in size. 2. Mild tricuspid regurgitation. RV systolic pressure of 32. 3. Normal RV size and systolic function. 4. Mild pulmonic insufficiency. 5. Normal left atrial size with dimension of 3.9 cm. 6. There is a suggestion of very mild prolapse of the anterior mitral leaflet. Mild mitral regurgitation. No evidence of mitral stenosis. 7. Normal LV size, end-diastolic dimension of 4.9. Normal wall thicknesses with a posterior and interventricular septal wall thickness of 0.9 and 1.0 cm respectively. Normal LV systolic function. The estimated EF is around 60% with normal wall motion. 8. Aortic valve opens well, is trileaflet. No evidence of stenosis or insufficiency. 9. Aorta appears normal in visualized segments. 10. No pericardial effusion seen. cc: Uday Fields MD
--- NOTE | 2019-03-10 16:28 | CARDIOLOGY CONSULTATION ---
DATE: 03/10/2019 CHIEF COMPLAINT: On presentation was shortness of breath. HISTORY OF PRESENT ILLNESS: Ms. Vick is a 63-year-old black female with a history of hypertension, who presented with complaints of shortness of breath that had been ongoing for several weeks. She initially thought it was secondary to weight gain. She subsequently was evaluated in the ER. In fact found to be in rapid atrial flutter. Since that time, she has been admitted to the ICU and placed on diltiazem infusion and has had conversion into sinus rhythm. She has had some mild coughing with recumbent position but no smothering, no chest pain. She denies any recent fevers. PAST MEDICAL HISTORY: 1. Significant for hypertension. 2. History of pulmonary histoplasmosis. 3. Hyperlipidemia. 4. Hypothyroidism. 5. Chronic back pain. SOCIAL HISTORY: She lives in [place]. She is disabled due to back problems. She smokes a half pack per day. FAMILY HISTORY: Mother had apparently had some sort of heart issue. REVIEW OF SYSTEMS: A 10 system review of systems is negative except for those things mentioned in HPI. PHYSICAL EXAMINATION: She is afebrile. Her most recent heart rate was documented at 100 with a blood pressure 87/69. Most of her systolics have been in the 100s to 120s range.General: She is in no acute distress. HEENT: Oropharynx is moist. She has normal dentition. Her eye examination shows pink conjunctivae, white sclerae. Neck: Examination shows no obvious thyromegaly or thyroid tenderness. Cardiovascular: She sounds to be in a regular rate and rhythm. Telemetry currently shows sinus. She has no lower extremity edema. Chest: Clear bilaterally. She has no increased work of breathing. Abdomen: Soft, nontender, nondistended. She has no obvious organomegaly. Skin: Warm and dry throughout without any rashes. Neurological: She is moving all extremities well. She has no lateralizing deficits. PERTINENT DATA: Her electrocardiogram initially on the at 9:58 shows what appears to be a variable conduction atrial flutter. Rate of 108 beats per minute. Her next EKG occurring on the at 9:03 again shows variable rate atrial flutter. Next EKG occurring on the at 17:49 again variable rate atrial flutter rate of 112 and her final EKG in the system on the 31st at 7:15 shows variable rate atrial flutter. Her current EKG at 15:17 today shows sinus mechanism with a right bundle branch block. She had a chest x-ray on presentation that shows mild cardiomegaly. Her lab data shows a white count is 7.7, hematocrit 37, platelet count 334,000. Her sodium is 138, potassium 3.4, BUN 10, creatinine 0.7. ProBNP was 868. Negative cardiac enzymes. LDL 147. Thyroid is normal. ASSESSMENT: Ms. Vick is a 63-year-old female who presented with new onset atrial flutter. PLAN: Her CHADS-VASc score is 2 for female sex and hypertension. We will place her on Eliquis at 5 mg b.i.d. We will stop her diltiazem later on this evening and start her on metoprolol at 25 b.i.d. and flecainide at 50 mg b.i.d. Tentative plan will be to have her follow up with [facility] with eventual referral to the [facility] e commerce developer for consideration for radiofrequency ablation. I will discontinue her digoxin. I will discuss with her the risks, benefits, and alternatives to anticoagulation. She denies any significant bleeding history. If she remains in sinus rhythm tomorrow, she can likely be discharged from our standpoint. cc: Uday Fields MD
--- NOTE | 2019-03-10 19:24 | EKG Report ---
Test Performed on : 03/10/2019 3:17:30 PM Test Reason : Converted into sinus Blood Pressure : / mmHG Vent. Rate : 095 BPM Atrial Rate : 095 BPM P-R Int : 164 ms QRS Dur : 106 ms QT Int : 384 ms P-R-T Axes : 064 -16 058 degrees QTc Int : 482 ms Normal sinus rhythm. Right atrial enlargement Borderline ECG When compared with ECG of 10-MAR-2019 07:15, (Unconfirmed) Sinus rhythm. has replaced Atrial flutter. QRS duration has decreased ST no longer elevated in Inferior leads T wave inversion no longer evident in Inferior leads Nonspecific T wave abnormality, improved in Anterior leads Confirmed by Aris Armstrong MD ([id number]) on 03/15/2019 3:15:41 PM
[2019-03-10] MEDS ORDERED: TAMBOCOR PO SCH (21:00)
[2019-03-10] MEDS ORDERED: LIPITOR PO SCH (21:00)
[2019-03-10] MEDS: ELAVIL PO SCH (21:11)
[2019-03-10] MEDS: TAMBOCOR PO SCH (21:12)
[2019-03-10] MEDS: LOPRESSOR PO SCH (21:12)
[2019-03-10] MEDS: NEURONTIN PO SCH (21:12)
[2019-03-10] MEDS: ELIQUIS PO SCH (21:12)
[2019-03-11] MEDS: TYLENOL PO PRN (05:00)
[2019-03-11 06:52] LABS: BASO# 0.02 X1000 (0.0-0.2); BASO% 0.3 % (0.0-0.8); EOS# 0.11 X1000 (0.0-0.7); EOS% 1.6 % (0.0-10.0); HEMATOCRIT 36.3 % (37.0-47.0); HEMOGLOBIN 11.1 g/dL (12.0-16.0); IMM GRAN# 0.01 X1000 (0.0-0.04); IMM GRAN% 0.1 % (0.0-0.5); LYMPH# 2.15 X1000 (1.2-3.4); LYMPH% 31.3 % (20.5-51.1); MCH 26.2 PG (27-31); MCHC 30.6 g/dL (33-37); MCV 85.6 FL (81-99); MONO# 0.51 X1000 (0.11-0.59); MONO% 7.4 % (1.7-9.3); MPV 9.8 FL (7.4-10.4); NEUT# 4.08 X1000 (1.4-6.5); NEUT% 59.3 % (42.2-75.2); PLT 340 X1000 (130-400); RBC 4.24 XMIL (4.2-5.4); RDW 15.2 % (11.5-14.5); WBC 6.88 X1000 (4.8-10.8)
[2019-03-11 07:06] LABS: AGAP 9; BUN 14 mg/dL (8-22); CALCIUM 9.1 mg/dL (8.8-10.2); CHLORIDE 100 mmol/L (98-107); COSMO 276; CREATININE 0.8 mg/dL (0.5-0.9); ESTIMATED GFR > 60; GLUCOSE 101 mg/dL (70-104); SODIUM 138 mmol/L (136-145); TCO2 30 mmol/L (25-35)
[2019-03-11] MEDS: PRILOSEC PO SCH (07:25)
[2019-03-11] MEDS ORDERED: ASPIRIN PO SCH (09:00)
[2019-03-11] MEDS: TAMBOCOR PO SCH (09:29)
[2019-03-11] MEDS: VITAMIN D PO SCH (09:31)
[2019-03-11] MEDS: LOPRESSOR PO SCH (09:31)
[2019-03-11] MEDS: ELIQUIS PO SCH (09:31)
[2019-03-11 11:42] VITALS: BP 123/85
--- NOTE | 2019-03-11 17:05 | DISCHARGE SUMMARY ---
ADMISSION DATE: 03/09/2019 DISCHARGE DATE: 03/11/2019 ADMISSION DIAGNOSES: 1. Atrial fibrillation with rapid ventricular response. 2. Hypertension. 3. Hypokalemia. 4. Graves disease versus hypothyroidism. 5. Peripheral neuropathy. 6. Vitamin D deficiency. DISCHARGE DIAGNOSES: 1. Atrial flutter with rapid ventricular response. 2. Hypertension, stable. 3. Hypothyroidism. 4. Dyslipidemia. CONSULTATIONS: Cardiology. SURGERIES/PROCEDURE: None. HOSPITAL COURSE: On 03/09/2019, Ms. Abril Vick, a 63-year-old female, presented to the emergency department at [facility] with complaints of weakness, lightheadedness, shortness of breath that apparently had been going on for couple of months but worse over the last week and a half prior to admission. Had some swelling or edema in the left leg pain and some chest tightness with palpitations, chronic constipation. Was admitted to ICU, started on Cardizem, and essentially maintained and stayed in ICU. She never did get to transfer out; she actually went home from there. She got some digoxin. She was on a Cardizem drip per protocol, started on weight based Lovenox. Fluid at that time was given for low blood pressure. Potassium was low, and it was treated. Thyroid studies also were done. She was continued on Synthroid, continued on Neurontin for her peripheral neuropathy, and the vitamin D was continued. Cardiology consulted, and Dr. Uday Fields saw her. Her CHADS- Vasc score was a 2 for female patient with hypertension. She was placed on Eliquis twice a day. The diltiazem was stopped after the metoprolol 25 twice a day and the flecainide 50 twice a day were started, and she was to [facility] an [facility]. Eventual referral to [facility], EP study, possible radiofrequency ablation. So heart rate was more controlled and discharged home. DISCHARGE VITAL SIGNS: Temperature 98.2 degrees, heart rate 90, respiratory rate 18, blood pressure 123/85, O2 saturation 96% on room air. DISCHARGE LAB DATA: White blood cells 6000, hemoglobin 11, hematocrit 36, platelet count 340,000. Sodium 138, potassium 4.0, BUN 14, creatinine 0.8, glucose 101. Calcium 9.1. Total cholesterol is 228. TSH 0.74. Free T4 is 1.47. PERTINENT IMAGING: Chest x-ray: Mild cardiomegaly. Echocardiogram: EF 60%. No effusion. Mild mitral valve prolapse. A venous study of the lower extremities which was negative for DVT. Had several EKGs, 3 EKGs on and 2 EKGs on the . EKG on was atrial flutter-rate 108, atrial fibrillation-rate 121, and 3rd one was atrial flutter-rate 112. On the , the 1st EKG was atrial flutter, rate 112. Second EKG was normal sinus rhythm, rate 95. So she converted on this admit. DISCHARGE DIET: Heart healthy. DISCHARGE MEDICATIONS: 1. Neurontin 300 mg p.o. nightly. 2. Amitriptyline 100 mg p.o. nightly. 3. Flexeril 10 mg p.o. daily. 4. Hydrochlorothiazide 25 mg p.o. daily. 5. Synthroid 112 mcg p.o. daily. 6. Vitamin D3 1 tablet p.o. daily. 7. Atorvastatin 20 mg p.o. nightly. 8. Eliquis 5 mg p.o. twice daily. 9. Flecainide 50 mg p.o. twice daily. 10. Metoprolol 25 mg p.o. twice daily. 11. Omeprazole 20 mg p.o. daily. DISCHARGE ACTIVITY: As tolerated. PHYSICIAN FOLLOW-UPS: Dr. Peter White. Call the office for visit in [address] London Keen and Dr. Uday Fields. DISCHARGE INSTRUCTIONS: If symptoms that you experience that brought you in return, please seek medical attention in the emergency department. Take medicines as directed. Call gymnastic coach Tuesday and make a follow-up appointment. If you start having symptoms of fast heart rate or shortness of breath, return to the ER or call the gymnastic coach's office. DISCHARGE DISPOSITION: Home. Dictated by RALPH Antonio for Korey Freire MD Addendum: Patient seen and examined by myself. Agree with RALPH note. It reflects my assessment and plan. Patient is being discharged in stable condition. Will be seen by Tumbling Instructor in 2 to 3 weeks. cc: RALPH Antonio MD [facility]
== END 2019-03-11 09:45 | disposition home or self-care (01) | DRG 310 ==
LOC: P.ED 08:47 → P.ICU 13:48 → SUATTDRO 13:48
PROVIDERS: ATTEND Internal Medicine

== ENCOUNTER 2019-04-06 19:41 | Observation (INO) ==
[2019-04-06] MEDS ORDERED: CARDIZEM ONE (19:49)
[2019-04-06] MEDS ORDERED: CARDIZEM IV ONE (19:53)
[2019-04-06 20:08] LABS: BASO# 0.03 X1000 (0.0-0.2); BASO% 0.4 % (0.0-0.8); EOS# 0.08 X1000 (0.0-0.7); HEMATOCRIT 38.5 % (37.0-47.0); HEMOGLOBIN 12.1 g/dL (12.0-16.0); IMM GRAN# 0.02 X1000 (0.0-0.04); IMM GRAN% 0.2 % (0.0-0.5); LYMPH# 2.45 X1000 (1.2-3.4); LYMPH% 30.5 % (20.5-51.1); MCH 26.5 PG (27-31); MCHC 31.4 g/dL (33-37); MCV 84.2 FL (81-99); MONO# 0.85 X1000 (0.11-0.59); MONO% 10.6 % (1.7-9.3); MPV 9.5 FL (7.4-10.4); NEUT# 4.59 X1000 (1.4-6.5); NEUT% 57.3 % (42.2-75.2); PLT 289 X1000 (130-400); RBC 4.57 XMIL (4.2-5.4); RDW 15.1 % (11.5-14.5); WBC 8.02 X1000 (4.8-10.8)
--- NOTE | 2019-04-06 20:26 | PROVIDER DOCUMENTATION ---
This chart was entered by Annamarie Souza Scribe, acting as scribe for Yuri Chand MD. HPI-Cardiac General - General Chief Complaint: Palpitations Stated Complaint: TIGHTNESS IN CHEST Time Seen by Provider: 04/06/19 19:53 Source: patient Allergies/Adverse Reactions: Patient Allergies Allergy/AdvReac Type Severity Reaction Status Date / Time Iodinated Contrast Media Allergy Severe HIVES Verified 03/09/19 08:56 Home Medications: Home Medication List Medication Instructions Recorded Confirmed Last Taken Type Levothyroxine [Synthroid] 112 microgm PO DAILY 04/19/16 03/09/19 03/29/17 06:00 History 125 Cyclobenzaprine [Flexeril] 10 mg PO DAILY 03/23/17 03/09/19 03/28/17 23:00 History 10 Gabapentin 300 mg PO QHS 03/23/17 03/09/19 03/28/17 23:00 History 300 Amitriptyline HCl 1 tab PO HS 03/09/19 03/09/19 Unknown History Cholecalciferol (Vitamin D3) 1 tab PO DAILY 03/09/19 03/09/19 Unknown History [Vitamin D3] Hydrochlorothiazide 1 tab PO DAILY 03/09/19 03/09/19 Unknown History ATORVAstatin [Lipitor] 20 mg PO QHS #90 tab 03/11/19 Unknown Rx Apixaban [Eliquis] 5 mg PO BID #60 tab 03/11/19 Unknown Rx Flecainide Acetate 50 mg PO BID #60 tab 03/11/19 Unknown Rx Metoprolol [Lopressor] 25 mg PO BID #60 tab 03/11/19 Unknown Rx Omeprazole [Prilosec] 20 mg PO DAILY@0700 cap 03/11/19 Unknown Rx - History of Present Illness-Cardiac Nature of Presenting Problem: Pt is 63/F presenting w/ palpitations , SOB and some chest tightness that has been present for the last 3 hrs. On arrival, patient has heart rate over 200 that readily responded to 15mg IV Cardizem. Heart rate is now 98 and chest tightness is gone. Pt ss that she was SOB for the last couple of days. 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 Location: reports: substernal Quality of Pain: reports: fullness Severity in ED: moderate Onset/Duration: 1-3 hours ago Timing: improving Context/Activities at Onset: reports: none Modifying Factors: improves with: nothing Palpitation lasted? (mins): 90 Palpitation Quality: fast/pounding heart beat History of arrythmia: reports: A-Fib Recent use of:: reports: no stimulants Nitro Today/Relief: reports: no nitro taken today Aspirin Treatment Today: reports: no aspirin today Associated Symptoms: reports: shortness of breath Similar Symptoms Previously?: Yes Recently Seen Here or By Another Healthcare Provider: Yes Review of Systems - Adult - REVIEW OF SYSTEMS - ADULT Constitutional: reports: no symptoms reported. denies: chills, fever Eyes: reports: no symptoms reported Ears, Nose, Mouth & Throat: reports: no symptoms reported Cardiovascular: reports: palpitations Respiratory: reports: no symptoms reported Gastrointestinal: reports: no symptoms reported Genitourinary: reports: no symptoms reported Musculoskeletal: reports: no symptoms reported Integumentary: reports: no symptoms reported Neurological: reports: no symptoms reported. denies: dizziness/vertigo, headache/migraines Psychiatric: reports: no symptoms reported Endocrine: reports: no symptoms reported Hematologic/Lymphatic: reports: no symptoms reported Allergic/Immunologic: reports: no symptoms reported All Other Systems: Reviewed and Negative Past History - Adult - PAST MEDICAL HISTORY-ADULT Review of Records: reports: Old Records Reviewed, Nursing Assessment Review, Medications Reviewed, Social history reviewed & non-contributory. Cardiovascular: reports: HTN Respiratory: reports: sleep apnea Musculoskeletal: reports: arthritis - PRIOR SURGERIES/PROCEDURES Surgical/Procedure History: reports: hysterectomy, orthopedic (extremity) - IMMUNIZATION STATUS Childhood Immunizations: See Nurse Assessment Flu Vaccine: See Nurse Assessment - FAMILY HISTORY Family History: reviewed, not pertinent - SOCIAL HISTORY Smoking: less than 1 pack/day Provider spent 3-5 mins advising pt. on dangers of tobacco.: Discussed manners to quit use, and f/u contacts for add'l counseling. Alcohol Use Frequency: never Living Situation: family Physical Exam-General - PHYSICAL EXAM-ADULT Initial Vital Signs Reviewed: Yes - CONSTITUTIONAL General Appearance: appears well, alert, mild distress - EYES Eyes: PERRL/EOMI, pink conjunctivae - HEAD, EARS, NOSE, MOUTH & THROAT HENMT: moist mucous membranes - NECK Neck: non-tender, full range of motion, supple, normal inspection - RESPIRATORY Respiratory: lungs clear - CARDIOVASCULAR Cardiovascular: tachycardia - GASTROINTESTINAL (ABDOMEN) Abdominal Exam: non tender, soft - MUSCULOSKELETAL Back Exam: normal inspection, no CVA tenderness Extremity: normal range of motion, non-tender, normal gait, normal inspection - SKIN Integumentary: normal color, warm/dry - NEUROLOGIC Neurologic: grossly normal - PSYCHIATRIC Psych/Mental Status: normal mood/affect, normal thought content, normal thought process, oriented x 3 Progress - PLAN OF CARE/RESULTS Progress/Plan/Lab Results: Vital Signs - 8 hr 04/06/19 19:46 Temperature 98.3 F Pulse Rate 209 H Respiratory Rate 22 Blood Pressure 88/63 O2 Sat by Pulse Oximetry 96 Laboratory Results - last 24 hr 04/06/19 04/06/19 04/06/19 19:54 19:54 19:54 WBC 8.02 RBC 4.57 Hgb 12.1 Hct 38.5 MCV 84.2 MCH 26.5 L MCHC 31.4 L RDW Std Deviation 15.1 H Plt Count 289 MPV 9.5 Immature Gran % (Auto) 0.2 Neut % (Auto) 57.3 Lymph % (Auto) 30.5 [place] % (Auto) 10.6 H Eos % (Auto) 1.0 Baso % (Auto) 0.4 Immature Gran # (Auto) 0.02 Neut # (Auto) 4.59 Lymph # (Auto) 2.45 [place] # (Auto) 0.85 H Eos # (Auto) 0.08 Baso # (Auto) 0.03 D-Dimer, Quantitative Sodium Potassium Chloride Carbon Dioxide Anion Gap BUN Creatinine Estimated GFR/1.73 m2 BUN/Creatinine Ratio Glucose Calculated Osmolality Calcium Magnesium Total Bilirubin AST ALT Alkaline Phosphatase Creatine Kinase 137 Troponin T < 0.010 Total Protein Albumin Globulin Albumin/Globulin Ratio TSH 04/06/19 04/06/19 04/06/19 19:54 19:54 19:54 WBC RBC Hgb Hct MCV MCH MCHC RDW Std Deviation Plt Count MPV Immature Gran % (Auto) Neut % (Auto) Lymph % (Auto) [place] % (Auto) Eos % (Auto) Baso % (Auto) Immature Gran # (Auto) Neut # (Auto) Lymph # (Auto) [place] # (Auto) Eos # (Auto) Baso # (Auto) D-Dimer, Quantitative < 0.27 Sodium Potassium Chloride Carbon Dioxide Anion Gap BUN Creatinine Estimated GFR/1.73 m2 BUN/Creatinine Ratio Glucose Calculated Osmolality Calcium Magnesium 1.8 Total Bilirubin AST ALT Alkaline Phosphatase Creatine Kinase Troponin T Total Protein Albumin Globulin Albumin/Globulin Ratio TSH 1.02 04/06/19 19:54 WBC RBC Hgb Hct MCV MCH MCHC RDW Std Deviation Plt Count MPV Immature Gran % (Auto) Neut % (Auto) Lymph % (Auto) [place] % (Auto) Eos % (Auto) Baso % (Auto) Immature Gran # (Auto) Neut # (Auto) Lymph # (Auto) [place] # (Auto) Eos # (Auto) Baso # (Auto) D-Dimer, Quantitative Sodium 136 Potassium 3.1 L Chloride 93 L Carbon Dioxide 28 Anion Gap 15 BUN 13 Creatinine 1.0 H Estimated GFR/1.73 m2 56 BUN/Creatinine Ratio 13 Glucose 118 H Calculated Osmolality 273 Calcium 9.5 Magnesium Total Bilirubin < 0.15 L AST 16 ALT 12 Alkaline Phosphatase 124 H Creatine Kinase Troponin T Total Protein 7.4 Albumin 4.1 Globulin 3.0 Albumin/Globulin Ratio 1.0 TSH Orders Category Date Time Status Cardiac Monitoring DIRECTED Care 04/06/19 19:55 Active CHEST-PORTABLE [RAD] Stat Exams 04/06/19 19:55 Completed CBC WITH ELECTRONIC DIFF [HEME] Stat Lab 04/06/19 19:54 Completed CK PROFILE [SP CHEM] Stat Lab 04/06/19 19:54 Completed CMP [COMPREHENSIVE METABOLIC PANEL] [CHEM] Stat Lab 04/06/19 19:54 Completed D-DIMER [COAG] Stat Lab 04/06/19 19:54 Completed MAGNESIUM [CHEM] Stat Lab 04/06/19 19:54 Completed TROPONIN T Stat Lab 04/06/19 19:54 Completed TSH Stat Lab 04/06/19 19:54 Completed 0.9% Sodium Chloride Inj [Ns] 1,000 ml Med 04/06/19 20:59 Active IV 125 mls/hr Diltiazem [Cardizem] Med 04/06/19 19:53 Discontinued 15 mg IV NOW ONE Diltiazem [Cardizem] Med 04/06/19 19:49 Discontinued 25 mg .ROUTE .STK-MED ONE Metoprolol [Lopressor] Med 04/06/19 20:43 Discontinued 50 mg PO NOW ONE Potassium Chloride E.r. [Klor-Con] Med 04/06/19 20:56 Discontinued 40 meq PO NOW ONE Oxygen Device Stat Oth 04/06/19 19:55 Completed Result Diagrams: 04/06/19 19:54 04/06/19 19:54 - EKG 1 Time of EKG reading by physician:: 19:50 EKG Read and Signed by:: Yuri Chand EKG Interpretation (*Must complete 3 of following elements*): Abnormal (Wide QRS tachycardia Left axis deviation Right bundle branch block. Possible lateral infarct, age undetermined. Abnormal ECG. SVT, NO STEMI) Rate: 209 Rhythm: WIDE QRS tachycardia [place]: normal MI Interval: normal ST Wave: normal 2 Time of EKG reading by physician:: 20:10 EKG Read and Signed by:: Yuri Chand EKG Interpretation (*Must complete 3 of following elements*): Abnormal (Atrial flutter with variable AV block, Left axis deviation. Pulmonary disease pattern. Nonspecific ST abnormality. Abnormal ECG) Rate: 105 Rhythm: Atrial Flutter [place]: left QRS: normal [place] Interval: normal ST Wave: non-specific ST changes - XRAY 1 XRAY: Bilateral XRAY Study: Chest Impression: Abnormal (EXAM: CHEST-PORTABLE - 04/06/2019 HISTORY: palpitations TECHNIQUE: Portable chest COMPARISON: 02/10/2019 FINDINGS: Heart size appears mildly enlarged and stable. There is mild tortuosity of the thoracic aorta. There is mild prominence of central vascular markings. There is no dense consolidation, pleural effusion, or pneumothorax identified. IMPRESSION: Mild cardiomegaly. Apparent mild vascular congestion. Electronically signed by Navin Hu 04/06/2019 8:24 PM 04/06/192023 Interpreting Physician: Navin Hu MD Dictated Date/Time: 04/06/192021 cc: Yuri Chand MD; London Keen MD) Departure - Departure Date of Disposition Decision: 04/06/19 Time of Disposition Decision: 21:58 DIAGNOSIS: Paroxysmal SVT (supraventricular tachycardia) Chest pain Qualifiers: Chest pain type: unspecified Qualified Code(s): R07.9 - Chest pain, unspecified Disposition: ADMITTED INPATIENT 09 Certified Medical Emergency: Emergent Condition: Stable Referrals and Follow-Ups: London Keen MD [Primary Care Provider] - - Critical Care Note This patient required my direct & personal management of CC.: No Attestation - Physician/ KESHA Attestation Patient care was provided by Advanced Practice Provider:: No The physician spent face to face time with patient:: Yes Advanced Practice Provider documentation review:: Supervising physician onsite and consulted in the evaluation and care of this patient. The physician did have a face to face encounter with the patient. This chart was documented by the indicated scribe, (Annamarie Souza, Scribe) and accurately reflects the services I performed and decisions made by me, Yuri Chand MD, as attested by the provider's signature.
[2019-04-06] MEDS ORDERED: LOPRESSOR PO ONE (20:43)
[2019-04-06 20:49] LABS: AGAP 15; ALBUMIN 4.1 g/dL (3.5-5.0); ALKALINE PHOSPHATASE 124 U/L (32-104); BUN 13 mg/dL (8-22); CALCIUM 9.5 mg/dL (8.8-10.2); CHLORIDE 93 mmol/L (98-107); COSMO 273; ESTIMATED GFR 56; GLUCOSE 118 mg/dL (70-104); GOT 16 U/L (10-30); GPT 12 U/L (10-36); POTASSIUM 3.1 mmol/L (3.5-5.1); SODIUM 136 mmol/L (136-145); TCO2 28 mmol/L (25-35); TOTAL BILIRUBIN < 0.15 mg/dL (0.20-1.00); TOTAL PROTEIN 7.4 g/dL (6.3-8.3)
[2019-04-06] MEDS ORDERED: KLOR-CON PO ONE (20:56)
[2019-04-06] MEDS ORDERED: NS 1,000 ML IV ONE ×2 (20:59→22:07)
[2019-04-06] MEDS ORDERED: LOPRESSOR PO SCH (21:00)
[2019-04-07 02:52] LABS: INR 1.1; PROTIME 14.8 Seconds (11.0-16.0)
[2019-04-07 02:53] LABS: PTT 34.6 Seconds (22.3-41.8)
--- NOTE | 2019-04-07 05:57 | EKG Report ---
Test Performed on : 04/06/2019 10:23:23 PM Test Reason : chest pain Blood Pressure : / mmHG Vent. Rate : 087 BPM Atrial Rate : 214 BPM P-R Int : 000 ms QRS Dur : 102 ms QT Int : 496 ms P-R-T Axes : 246 -36 -32 degrees QTc Int : 596 ms Atrial flutter. with variable AV block. Left axis deviation Cannot rule out Anterior infarct , age undetermined ST & T wave abnormality, consider inferolateral ischemia Abnormal ECG When compared with ECG of 06-APR-2019 20:10, (Unconfirmed) T wave inversion now evident in Inferior leads T wave inversion now evident in Anterolateral leads QT has lengthened Unconfirmed Result
[2019-04-07] MEDS: MAALOX PLUS LIQUID PO PRN ×2 (06:39→20:07)
[2019-04-07] MEDS ORDERED: ZOFRAN IV PRN (08:29)
[2019-04-07] MEDS: LOPRESSOR PO SCH ×2 (08:48→22:04)
[2019-04-07] MEDS ORDERED: HYDROCHLOROTHIAZIDE PO SCH (09:00)
[2019-04-07] MEDS ORDERED: FLEXERIL PO SCH (09:00)
[2019-04-07] MEDS ORDERED: LOPRESSOR PO SCH (09:00)
[2019-04-07 09:06] LABS: BASO# 0.01 X1000 (0.0-0.2); BASO% 0.2 % (0.0-0.8); EOS# 0.05 X1000 (0.0-0.7); EOS% 0.9 % (0.0-10.0); HEMATOCRIT 36.5 % (37.0-47.0); HEMOGLOBIN 11.5 g/dL (12.0-16.0); IMM GRAN# 0.01 X1000 (0.0-0.04); IMM GRAN% 0.2 % (0.0-0.5); LYMPH# 1.63 X1000 (1.2-3.4); LYMPH% 30.5 % (20.5-51.1); MCH 26.6 PG (27-31); MCHC 31.5 g/dL (33-37); MCV 84.3 FL (81-99); MONO# 0.69 X1000 (0.11-0.59); MONO% 12.9 % (1.7-9.3); MPV 9.4 FL (7.4-10.4); NEUT# 2.96 X1000 (1.4-6.5); NEUT% 55.3 % (42.2-75.2); PLT 277 X1000 (130-400); RBC 4.33 XMIL (4.2-5.4); RDW 15.5 % (11.5-14.5); WBC 5.35 X1000 (4.8-10.8)
[2019-04-07 09:15] LABS: INR 1.12; PTT 32.6 Seconds (22.3-41.8)
[2019-04-07 09:19] LABS: AGAP 7; ALBUMIN 3.4 g/dL (3.5-5.0); ALKALINE PHOSPHATASE 104 U/L (32-104); BUN 10 mg/dL (8-22); CALCIUM 8.8 mg/dL (8.8-10.2); CHLORIDE 102 mmol/L (98-107); COSMO 276; CREATININE 0.6 mg/dL (0.5-0.9); ESTIMATED GFR > 60; GLUCOSE 90 mg/dL (70-104); GOT 16 U/L (10-30); GPT 9 U/L (10-36); SODIUM 139 mmol/L (136-145); TCO2 30 mmol/L (25-35); TOTAL PROTEIN 6.2 g/dL (6.3-8.3)
[2019-04-07] MEDS: TAMBOCOR PO SCH ×2 (09:20→20:30)
[2019-04-07] MEDS: ELIQUIS PO SCH ×2 (09:21→20:06)
[2019-04-07] MEDS: VITAMIN D PO SCH (09:21)
[2019-04-07] MEDS: SYNTHROID PO SCH (09:24)
--- NOTE | 2019-04-07 09:44 | HISTORY AND PHYSICAL ---
PRIMARY CARE PROVIDER: Dr. London Keen. PRIMARY TELEPHONE QUOTATION CLERK: Dr. Fields. CHIEF COMPLAINT: Heart was racing and felt near syncopal. HISTORY OF PRESENT ILLNESS: Ms. Abril Vick is a 63-year-old female with a medical history of atrial fibrillation, atrial flutter, hypothyroidism, hypertension, asthma, obstructive sleep apnea, who presents from having a fast heart rate. Around 6 p.m. yesterday she was taking clothes out of the dryer, and felt her heart go into a racing mode. She felt like she was going to pass out, so she called her daughter and came to the hospital. She was found to have a heart rate in the 200s. EKG revealed an atrial flutter. She was given IV Cardizem and she slowed her heart rate down to the 90s, although it was most likely still atrial flutter. Her potassium was low at 3.1; that was replaced. She was sent to the ICU for closer observation. On further questioning her, she feels like she has had a cold over the last week and she has been taking some [id number] cold medications, but unsure of what it was. She did ask her personal pharmacist what medication to take that would be okay with all the medications she was already on, but still is unclear what medication it was that she took [id number]. She has also noticed she has been having more bilateral lower extremity edema, some indigestion that tends to be worse at night. She has been coughing up white to beige- colored phlegm. She has felt more fatigued and she has just felt like she has overall had more fluid buildup in her body. She apparently has seen Dr. Fields as an outpatient, who has been following up with her. Will consult Cardiology for any further recommendations. Resume her on her home medications and keep her electrolytes replaced. PAST MEDICAL HISTORY: 1. Hypothyroidism. 2. Constipation. 3. Diverticulosis. 4. Hypertension. 5. Asthma. 6. Obstructive sleep apnea. 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 8. Osteoarthritis. 9. Insomnia. 10. Anxiety. 11. Chronic back pain. SURGICAL HISTORY: 1. Bilateral knee replacements. 2. Two back surgeries. 3. Vein stripping. SOCIAL HISTORY: She lives in [place] and her has been for about 10 years. Currently living alone and is disabled. Apparently her back problems is what caused her to be disabled. She denies any alcohol or illicit drug use. Apparently, she had quit smoking for over 15 years, but now smokes a half pack per day. FAMILY HISTORY: Mother's side of the family with heart disease. ALLERGIES: IV contrast or iodine contrast. HOME MEDICATIONS: 1. Neurontin 300 mg p.o. nightly. 2. Amitriptyline 100 mg p.o. nightly. 3. Flexeril 10 mg p.o. daily. 4. Hydrochlorothiazide 25 mg p.o. daily. 5. Synthroid 112 mcg p.o. daily. 6. Vitamin D 3 5000 units p.o. daily. 7. Lipitor 20 mg p.o. daily. 8. Eliquis 5 mg p.o. twice daily. 9. Flecainide 50 mg p.o. twice daily. 10. Metoprolol 25 mg p.o. twice daily. 11. Prilosec 20 mg p.o. daily. REVIEW OF SYSTEMS: Fourteen point review of systems are complete; all were negative, except for those mentioned above in the HPI. PHYSICAL EXAMINATION: VITAL SIGNS: Temperature 97.9 degrees, heart rate 118, respiratory rate 21, blood pressure 127/87, O2 saturation 2 L nasal cannula with O2 saturation of 97%. She is 5 feet 2 inches tall, 206 pounds. BMI is 37.8. GENERAL: Ms. Abril Vick is a 63-year-old female. She is in no acute distress. She is able to answer questions appropriately. HEENT: Atraumatic, normocephalic. Pupils equal, round, reactive to light. Extraocular movements intact. Mucous membranes are moist. NECK: Trachea midline. CARDIOVASCULAR: Irregularly irregular. Tachycardic rate and rhythm. No rubs, gallops, murmurs. She has got 1+ lower extremity pitting edema, +2 dorsalis pedal pulses, +2 radial pulses. Negative JVD or carotid bruits. PULMONARY: Clear to auscultation. Bilateral breath sounds. No accessory muscle use or work of breathing noted. GI: Soft, nontender, nondistended. Positive bowel sounds x4. EXTREMITIES: Moves all extremities equally. Full range of motion. NEUROLOGIC: A and O x3. Follows commands. Sensory is intact. SKIN: Warm, dry, intact. LABORATORY DATA: White blood cells 8000, hemoglobin 12, hematocrit 38, platelet count 289. INR is 1.10, PTT is 34. D-dimer less than 0.27. Sodium 136, potassium 3.1. BUN 13, creatinine is 1.0, glucose 118, calcium 9.5, magnesium 1.8. Bilirubin is less than 0.15. AST 16, ALT 12, CK 119, troponin 0.076, albumin is 4.1. TSH 1.02. IMAGING STUDIES: Chest x-ray: Mild cardiomegaly and some mild vascular congestion. EKG: Atrial flutter. Rate was 87. ASSESSMENT AND PLAN: 1. Paroxysmal atrial fibrillation/flutter presented with supraventricular tachycardia rate 200s, slowed after receiving 20 mg of intravenous Cardizem, and her potassium of 3.1 was replaced. She was sent to the intensive care unit for closer observation. She is followed by Dr. Fields as an outpatient, so we will reconsult Cardiology as she still appears to be in atrial flutter to atrial fibrillation rhythm. Will keep electrolytes replaced. We will resume her Eliquis, flecainide and Lopressor. Her electrocardiogram at 9:15 a.m. this morning is still atrial flutter within a variable atrioventricular block, rate 104. 2. Hypothyroidism. She is on Synthroid 112 mcg daily. We will resume that. We will also check a thyroid stimulating hormone and T4 since she had supraventricular tachycardia this morning. I do not believe there have been any medication changes to her dosing. 3. Hyperlipidemia. Continue atorvastatin. 4. Gastroesophageal reflux disease. Continue Prilosec. 5. Insomnia. Continue amitriptyline. 6. Chronic back pain. Continue Flexeril. 7. Deep venous thrombosis prophylaxis. Again, she is on Eliquis. 8. Tobacco abuse. Cessation discussed. Dictated by RALPH Antonio for Korey Freire MD Addendum: Patient seen and examined by myself. Agree with RALPH note. It reflects my assessment and plan. Patient is admitted to hospital for SVT with HR that has reached 200. She is stable now after Cardizem IV and will order an echocardiogram and will consult Cardiology. Will monitor patient closely. cc: RALPH Antonio MD [facility]
--- NOTE | 2019-04-07 10:48 | EKG Report ---
Test Performed on : 04/06/2019 7:50:47 PM Test Reason : ER Blood Pressure : / mmHG Vent. Rate : 209 BPM Atrial Rate : 208 BPM P-R Int : 000 ms QRS Dur : 158 ms QT Int : 238 ms P-R-T Axes : 000 -71 082 degrees QTc Int : 443 ms Wide QRS tachycardia. Left axis deviation Right bundle branch block Possible Lateral infarct , age undetermined Abnormal ECG When compared with ECG of 10-MAR-2019 15:17, Wide QRS tachycardia. has replaced Sinus rhythm. Vent. rate has increased BY 114 BPM Unconfirmed Result
--- NOTE | 2019-04-07 10:57 | EKG Report ---
Test Performed on : 04/07/2019 09:15:44 AM Test Reason : svt Blood Pressure : / mmHG Vent. Rate : 104 BPM Atrial Rate : 234 BPM P-R Int : 000 ms QRS Dur : 098 ms QT Int : 404 ms P-R-T Axes : 078 -39 -14 degrees QTc Int : 531 ms Atrial flutter. with variable AV block. Left axis deviation ST & T wave abnormality, consider inferior ischemia Prolonged QT Abnormal ECG When compared with ECG of 06-APR-2019 22:23, (Unconfirmed) Minimal criteria for Anterior infarct are no longer present ST less depressed in Inferior leads QT has shortened Unconfirmed Result
--- NOTE | 2019-04-07 11:00 | EKG Report ---
Test Performed on : 04/06/2019 8:10:35 PM Test Reason : ER Blood Pressure : / mmHG Vent. Rate : 105 BPM Atrial Rate : 234 BPM P-R Int : 000 ms QRS Dur : 096 ms QT Int : 310 ms P-R-T Axes : 251 -40 019 degrees QTc Int : 409 ms Atrial flutter. with variable AV block. Left axis deviation Pulmonary disease pattern Nonspecific ST abnormality Abnormal ECG When compared with ECG of 06-APR-2019 19:50, (Unconfirmed) Atrial flutter. has replaced Wide QRS tachycardia. Vent. rate has decreased BY 104 BPM Unconfirmed Result
[2019-04-07] MEDS ORDERED: LOPRESSOR IV PRN (18:39)
[2019-04-07] MEDS: CARDIZEM PO SCH (20:05)
[2019-04-07] MEDS: ELAVIL PO SCH (20:06)
[2019-04-07] MEDS: NEURONTIN PO SCH (20:07)
[2019-04-07] MEDS: FLEXERIL PO SCH (20:07)
[2019-04-07] MEDS: LIPITOR PO SCH (20:07)
[2019-04-07] MEDS: LASIX IV SCH (20:29)
[2019-04-08] MEDS: CARDIZEM PO SCH ×2 (03:00→07:47)
[2019-04-08 05:43] LABS: BASO# 0.02 X1000 (0.0-0.2); BASO% 0.4 % (0.0-0.8); EOS# 0.05 X1000 (0.0-0.7); EOS% 0.9 % (0.0-10.0); HEMATOCRIT 40.1 % (37.0-47.0); HEMOGLOBIN 12.4 g/dL (12.0-16.0); IMM GRAN# 0.01 X1000 (0.0-0.04); IMM GRAN% 0.2 % (0.0-0.5); LYMPH# 1.91 X1000 (1.2-3.4); LYMPH% 34.3 % (20.5-51.1); MCH 26.1 PG (27-31); MCHC 30.9 g/dL (33-37); MCV 84.4 FL (81-99); MONO# 0.75 X1000 (0.11-0.59); MONO% 13.5 % (1.7-9.3); MPV 9.8 FL (7.4-10.4); NEUT# 2.83 X1000 (1.4-6.5); NEUT% 50.7 % (42.2-75.2); PLT 299 X1000 (130-400); RBC 4.75 XMIL (4.2-5.4); RDW 15.8 % (11.5-14.5); WBC 5.57 X1000 (4.8-10.8)
[2019-04-08 06:16] LABS: AGAP 10; ALBUMIN 3.6 g/dL (3.5-5.0); ALKALINE PHOSPHATASE 111 U/L (32-104); BUN 12 mg/dL (8-22); CALCIUM 9.2 mg/dL (8.8-10.2); CHLORIDE 98 mmol/L (98-107); COSMO 279; CREATININE 0.8 mg/dL (0.5-0.9); ESTIMATED GFR > 60; GLUCOSE 102 mg/dL (70-104); GOT 17 U/L (10-30); GPT 11 U/L (10-36); MAGNESIUM 2.1 mg/dL (1.5-2.7); POTASSIUM 3.9 mmol/L (3.5-5.1); SODIUM 140 mmol/L (136-145); TCO2 32 mmol/L (25-35); TOTAL PROTEIN 6.9 g/dL (6.3-8.3)
[2019-04-08] MEDS: PRILOSEC PO SCH (06:35)
[2019-04-08] MEDS: SYNTHROID PO SCH (06:35)
[2019-04-08] MEDS: TYLENOL PO PRN ×2 (06:35→20:17)
[2019-04-08] MEDS ORDERED: CARDIZEM CD PO SCH ×2 (09:00)
[2019-04-08] MEDS ORDERED: NS 1,000 ML IV ONE (09:46)
[2019-04-08] MEDS: ELIQUIS PO SCH ×2 (10:04→20:16)
[2019-04-08] MEDS: MIRALAX PO SCH (10:04)
[2019-04-08] MEDS: VITAMIN D PO SCH (10:04)
[2019-04-08] MEDS: TAMBOCOR PO SCH ×2 (10:05→20:19)
[2019-04-08] MEDS: LASIX IV SCH (10:05)
--- NOTE | 2019-04-08 10:31 | PROGRESS NOTE ---
DATE: 04/08/2019 SUBJECTIVE: The patient reports some sensation of pounding in her chest. Nursing staff informed me yesterday she was having heart rate in the 110s and 120s, so I decided to restart dose of Cardizem 60 mg p.o. q.6 hours, but this morning her blood pressure has been low in the range of 70s and 90s systolic blood pressure. OBJECTIVE: Vital Signs: Temperature 97.6 degrees, heart rate 118, respiratory rate 21, blood pressure 128/87, O2 saturation 96% on room air. General: This is a 63-year-old female lying in bed, in no acute distress. Cardiovascular: S1, S2 heard. Irregularly irregular and tachycardic. No murmurs, gallops, or rubs. Respiratory: Clear bilaterally to auscultation. No work of breathing or using accessory muscles. Abdomen: Soft, nontender to palpation. Bowel sounds present. No organomegaly. Extremities: No clubbing or cyanosis. Edema 1+ in both lower extremities. Peripheral pulses present in both legs. Neurological: Patient is alert and oriented x3. Moves 4 extremities. LABORATORY DATA: CBC is normal. CMP is normal as well. ASSESSMENT AND PLAN: 1. Paroxysmal atrial fibrillation with supraventricular tachycardia at presentation with heart rate 200. The patient has been restarted on beta-blockers and flecainide as well. Her blood pressure is 70s and 80s. So at this point, I am planning to hold beta- nik during the next 24 hours. We will provide 1 L of normal saline bolus, see of that improves blood pressure. Cardiology has been consulted. We are awaiting their recommendations. We will continue to monitor this patient here in the intensive care unit at [facility]. Patient has been started also on Eliquis as well. 2. Hypothyroidism. Will continue home doses of Synthroid. TSH is normal. 3. Hyperlipidemia. We will continue with atorvastatin. 4. Gastroesophageal reflux disease. We will continue Prilosec. 5. Chronic back pain. Patient is on Flexeril. Will continue with same management. 6. Disposition. At this point, considering that the blood pressure is going down, we will hold beta blockers. We will provide 1 L of normal saline bolus and will if the blood pressure improved some, will provide the Cardizem CD. In this case, we are going to increase the doses from 240 mg to 300 mg and see how she does. We will follow recommendations from Cardiology. . cc: Korey Freire MD MTDJennifer
[2019-04-08] MEDS: LOPRESSOR PO SCH ×2 (13:06→20:16)
[2019-04-08] MEDS: CARDIZEM CD PO SCH (13:06)
--- NOTE | 2019-04-08 13:16 | CARDIOLOGY CONSULTATION ---
DATE: 04/08/2019 REASON FOR CONSULTATION: Cardiology was consulted for atrial flutter with rapid ventricular rate. HISTORY OF PRESENT ILLNESS: Ms. Abril Vick is a 63-year-old lady with history of atrial flutter, who was admitted in [facility] on 03/10/2019, subsequently discharged home, followed up with Dr. Fields in our office, and this was in the last 1 to 2 weeks, and the plan was to see our Electrophysiology colleagues in [place] for consideration of ablation for her atrial flutter. The patient has had atrial flutter, which has been paroxysmal, has been on multiple medications. She presented to the emergency room with increasing shortness of breath, ongoing for a week or two, associated with weight gain and palpitations, which has worsened. As far as palpitations are concerned, she has been having intermittent episodes of increasing palpitations, which have worsened recently. She was admitted. Her electrocardiogram revealed a heart rate of 209 beats per minute with atrial flutter. Cardizem was ordered; however, by the time she came to the ICU, her flutter rate had improved to 80 to 110 beats per minute. Currently on telemetry, she has fluctuating between 100 to 120 beats per minute in atrial flutter. She has been on multiple medications, which she takes on a regular basis. There is no syncope. She complains of having episodes of dizziness, and with increasing flutter, she has also noticed shortness of breath. REVIEW OF SYSTEMS: A 14-point review of systems was done. GI: There is no history of nausea, vomiting, diarrhea. There is no history of hematemesis or melena. Central Nervous System: No focal weakness to suggest a CVA, TIA. : There is no dysuria or hematuria. Respiratory: As above. PAST MEDICAL HISTORY: 1. Palpitations for the last 1 year. 2. Paroxysmal atrial flutter. 3. Hypertension. 4. Hypothyroidism. 5. History of histoplasmosis. 6. Obstructive sleep apnea. 7. Asthma. 8. Chronic pain. 9. Bilateral knee replacements. 10. Two back surgeries. 11. Vein stripping. HOME MEDICATIONS: Include flecainide 50 mg b.i.d., Eliquis 5 mg b.i.d., Lipitor 20, she has been on Cardizem 180 mg a day, Synthroid 112 mcg a day, hydrochlorothiazide 25 mg daily, Flexeril 10, Neurontin 300, Prilosec 20. PHYSICAL EXAMINATION: Vital Signs: Blood pressure was 120/80, pulse 110. Heart: First and second heart sounds were heard. There was no S3 gallop. Respiratory: Normal air entry. There are no crepitations or rhonchi. Abdomen: Soft, nontender. There was no guarding or rigidity. Bowel sounds were heard. Central Nervous System: Alert and oriented. Was moving all 4 extremities. Extremities: Trace edema. HEENT: Atraumatic, normocephalic. Pupils were equal and reacting to light. IMAGING AND LABORATORY DATA: Laboratory examination revealed a sodium of 140, potassium 3.9, BUN 12, creatinine 0.8. Magnesium was normal at 2. Troponin unremarkable. ProBNP 1606. TSH 1.02. T4 of 1.10. Hematology: WBC 5.57, hemoglobin 12.4, hematocrit 40, platelet count of 299. Last echocardiogram, 03/09/2019, revealed left ventricular systolic function of 60%. There was normal left atrial size, mild mitral regurgitation, no pericardial effusion. Chest x-ray during this hospitalization revealed mild cardiomegaly with some venous congestion. ASSESSMENT AND PLAN: Ms. Abril Vick is a 63-year-old lady with history of hypertension, hyperlipidemia, chronic back pain, history of pulmonary histoplasmosis, has had atrial flutter, and has had paroxysmal atrial flutter, and has seen Dr. Fields in our office within the last couple of weeks, and referral for electrophysiology was contemplated. She is admitted with increasing palpitations and shortness of breath. When she came in, she had a heart rate of 200 beats per minute, in atrial flutter with rapid ventricular rate. Subsequently, rate has slow down to atrial flutter, varying from 110 to 130 beats per minute. Given this, I have recommended that she be transferred to [facility] for consideration of ablation during this hospitalization. In the interim, she is on a combination of Cardizem, beta-blockers, and flecainide. I have decreased the doses of her Cardizem, and given her low blood pressure which she had this morning, we will hold her beta blockers, but continue with the Cardizem at 180, and the flecainide as well. As far as anticoagulation therapy is concerned, she has elevated CHADS2-VASc score. She is on Eliquis 5 twice daily. I have not made any changes. For hypothyroidism, she is on levothyroxine. I will not make any changes. When she came in, she had mild pulmonary venous congestion, probably secondary to her tachycardia. She was placed on Lasix 40 mg intravenously twice a day. We will change it to oral Lasix. Thank you for the consult. Will follow hospital course. cc: Peter White MD
[2019-04-08] MEDS: LIPITOR PO SCH (20:16)
[2019-04-08] MEDS: LASIX PO SCH (20:16)
[2019-04-08] MEDS: FLEXERIL PO SCH (20:17)
[2019-04-08] MEDS: NEURONTIN PO SCH (20:17)
[2019-04-08] MEDS: ELAVIL PO SCH (20:17)
[2019-04-08] MEDS ORDERED: COLACE PO SCH (21:00)
[2019-04-09 05:46] LABS: BASO# 0.01 X1000 (0.0-0.2); BASO% 0.2 % (0.0-0.8); EOS# 0.07 X1000 (0.0-0.7); EOS% 1.3 % (0.0-10.0); HEMATOCRIT 39.2 % (37.0-47.0); IMM GRAN# 0.01 X1000 (0.0-0.04); IMM GRAN% 0.2 % (0.0-0.5); LYMPH# 2.34 X1000 (1.2-3.4); MCHC 30.6 g/dL (33-37); MONO# 0.67 X1000 (0.11-0.59); MONO% 12.9 % (1.7-9.3); NEUT% 40.4 % (42.2-75.2); PLT 287 X1000 (130-400); RBC 4.61 XMIL (4.2-5.4); RDW 15.7 % (11.5-14.5)
[2019-04-09 06:05] LABS: AGAP 9; ALBUMIN 3.5 g/dL (3.5-5.0); ALKALINE PHOSPHATASE 100 U/L (32-104); BUN 13 mg/dL (8-22); CALCIUM 8.7 mg/dL (8.8-10.2); CHLORIDE 101 mmol/L (98-107); COSMO 283; CREATININE 0.8 mg/dL (0.5-0.9); ESTIMATED GFR > 60; GLUCOSE 98 mg/dL (70-104); GOT 15 U/L (10-30); GPT 11 U/L (10-36); MAGNESIUM 2.1 mg/dL (1.5-2.7); POTASSIUM 3.8 mmol/L (3.5-5.1); SODIUM 142 mmol/L (136-145); TCO2 32 mmol/L (25-35); TOTAL PROTEIN 6.4 g/dL (6.3-8.3)
[2019-04-09] MEDS: PRILOSEC PO SCH (06:15)
[2019-04-09] MEDS: SYNTHROID PO SCH (06:15)
--- NOTE | 2019-04-09 07:24 | Diag Imaging Result Doc PS360 ---
EXAM: CHEST-2 VIEWS HISTORY: vascular congestion TECHNIQUE: Chest two views COMPARISON: 04/06/2018 FINDINGS: The lungs are well expanded. The heart is not enlarged. The vessels are not distended on the current exam. There are no infiltrates. No pleural effusions. IMPRESSION: Interval improvement. Electronically signed by Howard Parks 04/09/2019 7:22 AM
--- NOTE | 2019-04-09 10:00 | DISCHARGE SUMMARY ---
ADMISSION DATE: 04/06/2019 DISCHARGE DATE: 04/09/2019 DISCHARGE DIAGNOSES: 1. Paroxysmal atrial fibrillation/atrial flutter/supraventricular tachycardia. 2. Hypothyroidism. 3. Hyperlipidemia. 4. Gastroesophageal reflux disease. 5. Chronic back pain. CONSULTATIONS: Dr. White from cardiology. PROCEDURES: 1. Chest x-ray done on admission showed mild cardiomegaly and apparent mild vascular congestion. 2. Chest x-ray done today showed interval improvement. Vessels are not distended on the current exam. There is no infiltrate. HOSPITAL COURSE: This is a 63-year-old, female with a history of atrial fibrillation who has been followed by Dr. Fields in the office. She came for atrial fibrillation with rapid ventricular response. Then the rhythm has apparently changed to atrial flutter. As we mentioned before, cardiology has been seeing her and the plan was to try to be sent to [facility] for electrophysiology evaluation. At this time, when she was admitted, she was admitted to the intensive care unit to monitor this patient closely. Clinically, the patient was having symptoms. She reports having a pounding sensation in her chest. That symptom is better, although it is still present today. The patient has been receiving her usual medications; in this case, is flecainide and beta-blockers but unfortunately, blood pressure has been borderline low. We consulted cardiology who recommends to transfer this patient to [facility] for consideration of ablation during this hospitalization. Coordination has been made by cardiology. The patient is going to be transferred today in stable condition. DISCHARGE PHYSICAL EXAMINATION: Vital Signs: Temperature 98.0 degrees, heart rate 98, respiratory rate 19, blood pressure 98/63, O2 saturation 99% on room air. General Examination: This is a 63-year-old, female lying in bed, in no acute distress. Cardiovascular Examination: S1 and S2 heard. Tachycardic. Irregularly irregular. No murmurs, gallops, or rubs. Respiratory Examination: Clear bilaterally to auscultation. No work of breathing or using accessory muscles. Abdomen: Soft, nontender to palpation. Bowel sounds present. No organomegaly. Extremities: No clubbing, cyanosis, or edema. Peripheral pulses present in both legs. Neurological Examination: The patient is alert and oriented x3. Moves 4 extremities. LABORATORY DATA: Reviewed. DISCHARGE DISPOSITION: Patient is going to [facility] to be evaluated by cardiology service and electrophysiology for possible ablation. cc: Korey Freire MD
[2019-04-09] MEDS: TAMBOCOR PO SCH (10:19)
[2019-04-09] MEDS: ELIQUIS PO SCH (10:20)
[2019-04-09] MEDS: LOPRESSOR PO SCH (10:21)
[2019-04-09] MEDS: VITAMIN D PO SCH (10:21)
[2019-04-09] MEDS: CARDIZEM CD PO SCH (10:21)
[2019-04-09] MEDS: LASIX PO SCH (10:22)
[2019-04-09] MEDS: MIRALAX PO SCH (10:26)
[2019-04-09] MEDS: TYLENOL PO PRN (10:28)
[2019-04-09 17:27] VITALS: BP 117/79
== END 2019-04-09 18:45 | disposition short-term general hospital (02) ==
LOC: P.ED 19:41 → P.ICU 23:06 → INTOOBSV 23:06
PROVIDERS: ATTEND Internal Medicine